=== PATIENT | male | born 1955 | race Caucasian/White ===

== ENCOUNTER 2016-07-14 16:33 | Observation (INO) | payer OTHER ==
[2016-07-14 17:18] VITALS: BMI 23.5
[2016-07-14] MEDS ORDERED: ASPIRIN 81 MG CHEWABLE TABLETS PO ONE (20:25)
--- NOTE | 2016-07-14 20:26 | PDOC ---
History of Present Illness - General Chief Complaint: Chest Pain Stated Complaint: DIZZINESS Time Seen by Provider: 07/14/16 19:41 History Source: Patient Exam Limitations: No Limitations - History of Present Illness Initial Comments: 07/14/16 20:21 61yo Male patient presents to ED c/o CP that began at 3pm today with right arm pain and dry mouth. Patient reports he was recently admitted for difficulty breathing but signed himself out 07/03 because he wanted to spend the holidays with family. Patient reports hx: COPD, Asthma, HTN, Open Heart Surgery. He denies n/v/d, fever, back pain, diff breathing, confusion, dizziness, sweating, hematuria, dysuria, or any other complaints at this time. Dr. Kaye- Cardiology Timing/Duration: reports: constant, changing over time Severity/Quality: reports: moderate, pressure Location: reports: substernal Chest Pain Radiation: reports: arms (Right Arm) Activities at Onset: reports: no specific activity Prior Chest Pain/Cardiac Workup: reports: Other (Bypass surgery 1 year ago.) Modifying Factors: worse with: antacids, breathing, coughing, defecating, eating , exercise, lying down, morphine, movement, nitroglycerin, oxygen, palpation, rest, other Nitro Today/Relief: No: no nitro taken today, 0.4 mg x 1, 0.4 mg x 2, 0.4 mg x 3 , 0.4 mg x 4, provided by EMS, provided by ED, provided at home, no relief, mild relief, complete relief Aspirin Received prior to arrival (Core Measure): Yes: provided by ED Associated Symptoms: Yes: Chest Pain/pressure Past History - Travel Traveled outside of the country in the last 30 days: No Close contact w/someone who was outside of country & ill: No - Past Medical History Allergies/Adverse Reactions: Allergies Allergy/AdvReac Type Severity Reaction Status Date / Time shrimp Allergy Vomiting Verified 07/14/16 17:18 Home Medications: Ambulatory Orders Ascorbic Acid [Vitamin C] 500 mg PO DAILY 02/20/15 Aspirin [Cipriano Chewable Aspirin] 81 mg PO DAILY 02/20/15 Carvedilol [Coreg] 25 mg PO BID 02/20/15 Famotidine [Pepcid -] 20 mg PO DAILY #7 tablet 02/20/15 Gabapentin 300 mg PO TID 02/20/15 Isosorbide Mononitrate 60 mg PO DAILY 02/20/15 Multivitamin [Poly-Vitamin] 1 each PO DAILY 02/20/15 Rosuvastatin Calcium [Crestor] 20 mg PO BID 02/20/15 Budesonide/Formeterol Fumarate [SYMBICORT 80/4.5mcg -] 1 inh PO BID 07/01/16 Albuterol 0.083% Nebulizer Letty [Ventolin 0.083% Nebulizer Soln -] 1 amp NEB ONCE PRN #0 amp 07/03/16 Amlodipine Besylate [Norvasc -] 5 mg PO DAILY #30 tablet 07/03/16 Budesonide/Formeterol Fumarate [SYMBICORT 160/4.5mcg -] 1 inh PO BID #1 cannister 07/03/16 Furosemide [Lasix -] 40 mg PO BID #60 tablet 07/03/16 Hydralazine HCl [Apresoline -] 50 mg PO TID #90 tablet 07/03/16 Ipratropium/Albuterol Sulfate [Combivent Respimat Inhal [place]] 4 gm IH DAILY #1 aer.w.adap 07/03/16 Isosorbide Mononitrate [Imdur -] 60 mg PO DAILY tab.sr.24h 07/03/16 Prednisone 10 mg PO DAILY #10 tablet 07/03/16 Tamsulosin HCl [Flomax -] 0.8 mg PO DAILY@0830 #30 cap.er.24h 07/03/16 Asthma: Yes Cardiac Disorders: Yes (CABG) CVA: Yes (08/2014) COPD: Yes CHF: Yes Diabetes: No HTN: Yes Hypercholesterolemia: No Suicide Attempt (Hx): No - Surgical History Cardiac Surgery: Yes Orthopedic Surgery: Yes (lt above knee amputation) - Immunization History Immunization Up to Date: No - Psycho/Social/Smoking Cessation Hx Anxiety: No Suicidal Ideation: No Smoking History: Former smoker Have you smoked in the past 12 months: No Number of Cigarettes Smoked Daily: 2 If you are a former smoker, when did you quit?: 4 YRS AGO Cigars Per Day: 1 Information on smoking cessation initiated: No 'Breaking Loose' booklet given: 09/08/14 Hx Alcohol Use: No Drug/Substance Use Hx: No Substance Use Type: None Hx Substance Use Treatment: No Cardiac Specific PMH - Complaint Specific PMHX Myocardial Infarction: Yes Pacemaker: No (was to get in Aug, but refused) Review of Systems - Review of Systems Respiratory: No: Orthopnea, Shortness of Breath Cardiac (ROS): Yes: Chest Pain, Other (Bypass surgery) All Other Systems: Reviewed and Negative *Physical Exam - Vital Signs Last Vital Signs Temp Pulse Resp BP Pulse Ox 98.4 F 74 16 126/65 96 07/14/16 17:15 07/14/16 17:15 07/14/16 17:15 07/14/16 17:15 07/14/16 17:15 - Physical Exam General Appearance: Yes: Nourished, Appropriately Dressed Neck: positive: Trachea midline, Supple Respiratory/Chest: positive: Lungs Clear, Normal Breath Sounds Cardiovascular: positive: Regular Rhythm, Regular Rate Gastrointestinal/Abdominal: positive: Normal Bowel Sounds, Soft Lymphatic: negative: Adenopathy Musculoskeletal: positive: Normal Inspection Extremity: positive: Normal Capillary Refill, Normal Inspection, Normal Range of Motion Integumentary: positive: Normal Color, Dry, Warm Neurologic: positive: superintendent marine II-XII NML intact ED Treatment Course - LABORATORY CBC & Chemistry Diagram: 07/14/16 22:46 - ADDITIONAL ORDERS Additional order review: Laboratory Results 07/14/16 07/14/16 23:00 22:46 Creatine Kinase 85 Troponin I 0.04 D Urine Color Ltyellow Urine Appearance Clear Urine pH 6.0 Ur Specific [place] 1.014 Urine Protein 1+ H Urine Glucose (UA) Negative Urine Ketones Negative Urine Blood Negative Urine Nitrite Negative Urine Bilirubin Negative Urine Urobilinogen Negative Ur Leukocyte Esterase Negative 07/14/16 22:46 RBC 4.84 MCV 91.8 MCHC 32.1 RDW 14.3 MPV 9.4 Neutrophils % 63.0 Lymphocytes % 16.1 D Monocytes % 17.8 H Eosinophils % 2.4 D Basophils % 0.7 D - RADIOLOGY Radiology Studies Ordered: Category Date Time Status CHEST X-RAY PORTABLE* [RAD] Stat Radiology 07/14/16 19:50 Completed - Medications Given in the ED: ED Medications Discontinued Medications Generic Name Dose Route Start Last Admin Trade Name Freq PRN Reason Stop Dose Admin Aspirin 324 mg 07/14/16 20:25 07/14/16 22:48 Asa - PO 07/14/16 20:26 324 mg ONCE ONE Administration *DC/Admit/Observation/Transfer Diagnosis at time of Disposition: Chest pain in adult COPD (chronic obstructive pulmonary disease) Qualifiers: COPD type: COPD with acute exacerbation Qualified Code(s): J44.1 - Chronic obstructive pulmonary disease with (acute) exacerbation - Discharge Dispostion Condition at time of disposition: Stable Admit: Yes Decision to Admit order Date/Time: 07/15/16 00:[address] Velasco
--- NOTE | 2016-07-14 20:36 | PDOC ---
*Physical Exam - Vital Signs Last Vital Signs Temp Pulse Resp BP Pulse Ox 98.4 F 74 16 126/65 96 07/14/16 17:15 07/14/16 17:15 07/14/16 17:15 07/14/16 17:15 07/14/16 17:15 ED Treatment Course - LABORATORY CBC & Chemistry Diagram: 07/15/16 05:51 07/15/16 05:51 Medical Decision Making - Medical Decision Making 07/14/16 20:36 agree with care from LUBNA Delgado *DC/Admit/Observation/Transfer Diagnosis at time of Disposition: COPD (chronic obstructive pulmonary disease), Chest pain in adult - Discharge Dispostion Condition at time of disposition: Stable
[2016-07-14] MEDS ORDERED: ASPIRIN 325 MG TABLET ONE (22:51)
[2016-07-14 23:22] LABS: BASOPHIL 0.7 % (0-2.0); EOSINOPHIL 2.4 % (0-4.5); MCH 29.5 pg (25.7-33.7); MCHC 32.1 g/dl (32.0-35.9); MEAN CELL VOLUME 91.8 fl (80-96); MEAN PLT VOLUME 9.4 fl (7.5-11.1); PLATELET COUNT 162 K/MM3 (134-434); RDW 14.3 % (11.9-15.9); WHITE BLOOD COUNT 6.5 K/mm3 (4.0-10.0)
[2016-07-14 23:56] LABS: TROPONIN I 0.04 ng/ml (0.00-0.05)
[2016-07-15 00:17] LABS: URINE APPEARANCE CLEAR; URINE BILIRUBIN NEGATIVE (NEGATIVE); URINE BLOOD NEGATIVE (NEGATIVE); URINE COLOR LTYELLOW; URINE GLUCOSE (UA) NEGATIVE (NEGATIVE); URINE KETONE NEGATIVE (NEGATIVE); URINE LEUK ESTERASE NEGATIVE (NEGATIVE); URINE NITRITE NEGATIVE (NEGATIVE); URINE UROBILINOGEN NEGATIVE E.U./dl (0.2-1.0)
[2016-07-15 00:21] LABS: URINE PROTEIN 1+ (NEGATIVE)
[2016-07-15 00:36] LABS: URINE RBC 1 /hpf (0-3); URINE WBC 1 /hpf (3-5)
--- NOTE | 2016-07-15 00:51 | HP ---
[id number] HISTORY OF PRESENT ILLNESS: 61 year old male, past medical history of COPD, CHF, asthma,, ischemic cardiomyopathy, CAD s/p CABG, CVA, CKD, HTN, who presents with substernal chest pain radiating down his right arm, 8 hours in duration. ER course was notable for: (1) Chest pain (2) Right arm numbness Recent Travel: None reported PAST MEDICAL HISTORY: COPD, CHF, asthma, ischemic cardiomyopathy, CAD s/p CABG, CVA, CKD, HTN, PAST SURGICAL HISTORY: Left above knee amputation Social History: Smoking: None reported Alcohol: None reported Drugs: None reported Family History: Allergies shrimp Allergy (Verified 07/14/16 17:18) Vomiting HOME MEDICATIONS: Medication Instructions Recorded Ascorbic Acid [Vitamin C] 500 mg PO DAILY 02/20/15 Aspirin [Cipriano Chewable Aspirin] 81 mg PO DAILY 02/20/15 Carvedilol [Coreg] 25 mg PO BID 02/20/15 Famotidine [Pepcid -] 20 mg PO DAILY #7 tablet 02/20/15 Gabapentin 300 mg PO TID 02/20/15 Isosorbide Mononitrate 60 mg PO DAILY 02/20/15 Multivitamin [Poly-Vitamin] 1 each PO DAILY 02/20/15 Rosuvastatin Calcium [Crestor] 20 mg PO BID 02/20/15 Budesonide/Formeterol Fumarate 1 inh PO BID 07/01/16 [SYMBICORT 80/4.5mcg -] Albuterol 0.083% Nebulizer Letty 1 amp NEB ONCE PRN #0 amp 07/03/16 [Ventolin 0.083% Nebulizer Soln -] Amlodipine Besylate [Norvasc -] 5 mg PO DAILY #30 tablet 07/03/16 Budesonide/Formeterol Fumarate 1 inh PO BID #1 cannister 07/03/16 [SYMBICORT 160/4.5mcg -] Furosemide [Lasix -] 40 mg PO BID #60 tablet 07/03/16 Hydralazine HCl [Apresoline -] 50 mg PO TID #90 tablet 07/03/16 Ipratropium/Albuterol Sulfate 4 gm IH DAILY #1 aer.w.adap 07/03/16 [Combivent Respimat Inhal [place]] Isosorbide Mononitrate [Imdur -] 60 mg PO DAILY tab.sr.24h 07/03/16 Prednisone 10 mg PO DAILY #10 tablet 07/03/16 Tamsulosin HCl [Flomax -] 0.8 mg PO DAILY@0830 #30 cap.er.24h 07/03/16 REVIEW OF SYSTEMS CONSTITUTIONAL: Absent: fever, chills, diaphoresis, generalized weakness, malaise, loss of appetite, weight change HEENT: Absent: rhinorrhea, nasal congestion, throat pain, throat swelling, difficulty swallowing, mouth swelling, ear pain, eye pain, visual changes CARDIOVASCULAR: Present: chest pain Absent: syncope, palpitations, irregular heart rate, lightheadedness, peripheral edema RESPIRATORY: Absent: cough, shortness of breath, dyspnea with exertion, orthopnea, wheezing, stridor, hemoptysis GASTROINTESTINAL: Absent: abdominal pain, abdominal distension, nausea, vomiting, diarrhea, constipation, melena, hematochezia GENITOURINARY: Absent: dysuria, frequency, urgency, hesitancy, hematuria, flank pain, genital pain MUSCULOSKELETAL: Absent: myalgia, arthralgia, joint swelling, back pain, neck pain SKIN: Absent: rash, itching, pallor HEMATOLOGIC/IMMUNOLOGIC: Absent: easy bleeding, easy bruising, lymphadenopathy, frequent infections ENDOCRINE: Absent: unexplained weight gain, unexplained weight loss, heat intolerance, cold intolerance NEUROLOGIC: Absent: headache, focal weakness or paresthesias, dizziness, unsteady gait, seizure, mental status changes, bladder or bowel incontinence PSYCHIATRIC: Absent: anxiety, depression, suicidal or homicidal ideation, hallucinations. PHYSICAL EXAMINATION Vital Signs - 24 hr 07/14/16 17:15 Temperature 98.4 F Pulse Rate 74 Respiratory 16 Rate Blood Pressure 126/65 O2 Sat by Pulse 96 Oximetry (%) GENERAL: Awake, alert, and fully oriented, in no acute distress. HEAD: Normal with no signs of trauma. EYES: Pupils equal, round and reactive to light, extraocular movements intact, sclera anicteric, conjunctiva clear. No lid lag. EARS, NOSE, THROAT: Ears normal, nares patent, oropharynx clear without exudates. Moist mucous membranes. NECK: Normal range of motion, supple without lymphadenopathy, JVD, or masses. LUNGS: +Bilateral expiratory wheezing. No crackles. No accessory muscle use. HEART: Regular rate and rhythm, normal S1 and S2 without murmur, rub or gallop. ABDOMEN: Soft, nontender, not distended, normoactive bowel sounds, no guarding, no rebound, no masses. No hepatomegaly or splenomegaly. MUSCULOSKELETAL: Normal range of motion at all joints. No bony deformities or tenderness. No CVA tenderness. UPPER EXTREMITIES: 2+ pulses, warm, well-perfused. No cyanosis. No clubbing. Cap refill <2 seconds. No peripheral edema. LOWER EXTREMITIES: 2+ pulses, warm, well-perfused. No calf tenderness. No peripheral edema. Amputated above the knee left lower extremity. NEUROLOGICAL: Cranial nerves II-XII intact. Normal speech. Normal gait. PSYCHIATRIC: Cooperative. Good eye contact. Appropriate mood and affect. SKIN: Warm, dry, normal turgor, no rashes or lesions noted. Laboratory Results - last 24 hr 07/14/16 07/14/16 07/14/16 22:46 22:46 23:00 WBC 6.5 D RBC 4.84 Hgb 14.3 Hct 44.4 MCV 91.8 MCHC 32.1 RDW 14.3 Plt Count 162 D MPV 9.4 Neutrophils % 63.0 Lymphocytes % 16.1 D Monocytes % 17.8 H Eosinophils % 2.4 D Basophils % 0.7 D Creatine Kinase 85 Troponin I 0.04 D Urine Color Ltyellow Urine Appearance Clear Urine pH 6.0 Ur Specific [place] 1.014 Urine Protein 1+ H Urine Glucose (UA) Negative Urine Ketones Negative Urine Blood Negative Urine Nitrite Negative Urine Bilirubin Negative Urine Urobilinogen Negative Ur Leukocyte Esterase Negative Urine RBC 1 Urine WBC 1 Ur Epithelial Cells Rare Chest X-Ray Impression: Mild cardiomegaly and bilateral increased interstitial markings again seen without evidence of focal infiltrates. ASSESSMENT/PLAN: 61 year old male, past medical history of ischemic cardiomyopathy, chronic systolic and diastolic heart failure, CKD, COPD, CAD, HTN, HLD, who presents with chest pain 1. Chest pain -Rule out ACS -Trend troponins -EKG -Continue with aspirin -morphine/nitro PRN pain -Heart Score: 4 2. Diastolic and systolic heart failure -Recent echo with EF of 20% -Patient refused ICD on last admission -Continue with coreg, hydralazine 3. COPD -Continue home meds -Continue nebulizer PRN -Slow dose prednisone 10mg daily -No in acute exacerbation 4. CAD -Continue home meds 5. HLD -Continue home meds 6. Renal Failure Documentation prepared by Devin Olmstead, acting as medical associate for Chasidy Velasco D.O. <Chasidy Velasco - Last Filed: 07/19/16 19:03> Visit type - Emergency Visit Emergency Visit: Yes ED Registration Date: 07/15/16 Care time: The patient presented to the Emergency Department on the above date and was hospitalized for further evaluation of their emergent condition. - New Patient This patient is new to me today: Yes Date on this admission: 07/19/16 - Critical Care Critical Care patient: No
[2016-07-15] MEDS ORDERED: ALBUTEROL SO4 0.083% IH SOL 2.5 MG/3 ML VIAL.NEB. NEB ONE (01:47)
[2016-07-15] MEDS ORDERED: ALBUTEROL SO4 2.5/IPRATROPIUM 0.5 INH SOL 3 ML VIAL.NEB. NEB ONE (02:25)
[2016-07-15 02:27] LABS: ALBUMIN 2.1 g/dl (3.4-5.0); BILIRUBIN,TOTAL 0.5 mg/dL (0.2-1.0); MAGNESIUM 1.8 mg/dL (1.8-2.4); TOT PROT 4.8 g/dl (6.4-8.2)
[2016-07-15 02:35] LABS: CALCIUM 6.4 mg/dL (8.5-10.1)
[2016-07-15 06:16] LABS: MCH 29.3 pg (25.7-33.7); MCHC 32.1 g/dl (32.0-35.9); MEAN CELL VOLUME 91.3 fl (80-96); MEAN PLT VOLUME 9.6 fl (7.5-11.1); PLATELET COUNT 179 K/MM3 (134-434); RDW 14.6 % (11.9-15.9); WHITE BLOOD COUNT 5.2 K/mm3 (4.0-10.0)
[2016-07-15 07:09] LABS: CALCIUM 8.1 mg/dL (8.5-10.1); CREATININE 2.7 mg/dL (0.7-1.3); MAGNESIUM 2.6 mg/dL (1.8-2.4)
[2016-07-15] MEDS ORDERED: PATIENT'S OWN MEDICATION (NON-FORMULARY) (Ipratropium/Albuterol Sulfate [Combivent Respima IH SCH (10:00)
[2016-07-15] MEDS: TAMSULOSIN HCL 0.4 MG CAP.ER.24H (FP) PO SCH (10:15)
[2016-07-15] MEDS: ISOSORBIDE MONONITRATE 60 MG TAB.SR.24H (FP) PO SCH (10:15)
[2016-07-15] MEDS: ASPIRIN 81 MG CHEWABLE TABLETS PO SCH (10:15)
[2016-07-15] MEDS: CARVEDILOL 25 MG TABLET (FP) PO SCH ×2 (10:15→22:10)
[2016-07-15] MEDS: hydrALAZINE HCL 50 MG TABLET (FP) PO SCH ×3 (10:15→22:10)
[2016-07-15] MEDS: predniSONE 10 MG TABLET (UD) PO SCH (10:15)
[2016-07-15] MEDS: amLODIPine BESYLATE 5 MG TABLET (FP) PO SCH (10:15)
[2016-07-15] MEDS: FUROSEMIDE 40 MG TABLET (FP) PO SCH ×2 (10:15→16:30)
[2016-07-15] MEDS: ASCORBIC ACID 500 MG TABLET (FP) PO SCH (10:15)
[2016-07-15] MEDS: GABAPENTIN 300 MG CAPSULE (FP) PO SCH ×3 (10:15→22:10)
[2016-07-15] MEDS: RANITIDINE HCL 150 MG TABLET (FP) PO SCH (10:15)
[2016-07-15] MEDS: MULTIVITAMINS (DAILY MVI) TABLET (FP) PO SCH (10:15)
--- NOTE | 2016-07-15 13:00 | CONSULT ---
Consult Consult Specialty:: cardiology - History of Present Illness History of Present Illness: 61yo Male patient presents to ED c/o CP that began at 3pm today with right arm pain and dry mouth. Patient reports he was recently admitted for difficulty breathing but signed himself out 07/03 because he wanted to spend the holidays with family. Patient reports hx: COPD, Asthma, HTN, Open Heart Surgery. He denies n/v/d, fever, back pain, diff breathing, confusion, dizziness, sweating, hematuria, dysuria, or any other complaints at this time. 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 LE Former heavy cigarette smoker; quit in 2010 Quit alcohol years ago; never a heavy drinker - History Source History Provided By: Patient, Medical Record - Past Medical History [employer]: Yes: CVA Cardio/Vascular: Yes: CAD, CHF, HTN, Hyperlipdemia Pulmonary: Yes: Asthma, COPD Renal/: Yes: Renal Inusuff Endocrine: Yes: Diabetes Mellitus - Past Surgical History Past Surgical History: Yes: Amputation, CABG - Alcohol/Substance Use Hx Alcohol Use: No History of Substance Use: reports: None - Smoking History Smoking history: Former smoker Have you smoked in the past 12 months: No Aproximately how many cigarettes per day: 2 If you are a former smoker, when did you quit?: 4 YRS AGO - Social History ADL: Independent 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 History of Recent Travel: No Home Medications - Allergies Allergies/Adverse Reactions: Allergies Allergy/AdvReac Type Severity Reaction Status Date / Time shrimp Allergy Vomiting Verified 07/14/16 17:18 - Home Medications Home Medications: Ambulatory Orders Ascorbic Acid [Vitamin C] 500 mg PO DAILY 02/20/15 Aspirin [Cipriano Chewable Aspirin] 81 mg PO DAILY 02/20/15 Carvedilol [Coreg] 25 mg PO BID 02/20/15 Famotidine [Pepcid -] 20 mg PO DAILY #7 tablet 02/20/15 Gabapentin 300 mg PO TID 02/20/15 Multivitamin [Poly-Vitamin] 1 each PO DAILY 02/20/15 Rosuvastatin Calcium [Crestor] 20 mg PO BID 02/20/15 Budesonide/Formeterol Fumarate [SYMBICORT 80/4.5mcg -] 1 inh PO BID 07/01/16 Albuterol 0.083% Nebulizer Letty [Ventolin 0.083% Nebulizer Soln -] 1 amp NEB ONCE PRN #0 amp 07/03/16 Amlodipine Besylate [Norvasc -] 5 mg PO DAILY #30 tablet 07/03/16 Budesonide/Formeterol Fumarate [SYMBICORT 160/4.5mcg -] 1 inh PO BID #1 cannister 07/03/16 Furosemide [Lasix -] 40 mg PO BID #60 tablet 07/03/16 Hydralazine HCl [Apresoline -] 50 mg PO TID #90 tablet 07/03/16 Ipratropium/Albuterol Sulfate [Combivent Respimat Inhal [place]] 4 gm IH DAILY #1 aer.w.adap 07/03/16 Isosorbide Mononitrate [Imdur -] 60 mg PO DAILY tab.sr.24h 07/03/16 Prednisone 10 mg PO DAILY #10 tablet 07/03/16 Tamsulosin HCl [Flomax -] 0.8 mg PO DAILY@0830 #30 cap.er.24h 07/03/16 Family Disease History - Family Disease History Family Disease History: Diabetes: Mother (HTN), Heart Disease: Father, Other: Brother (healthy and living), Sister (healthy and living) Review of Systems - Review of Systems Constitutional: reports: No Symptoms Eyes: reports: No Symptoms HENT: reports: No Symptoms Neck: reports: No Symptoms Cardiovascular: reports: No Symptoms Respiratory: reports: SOB Gastrointestinal: reports: No Symptoms Genitourinary: reports: No Symptoms Breasts: reports: No Symptoms Reported Musculoskeletal: reports: No Symptoms Integumentary: reports: No Symptoms Neurological: reports: No Symptoms Endocrine: reports: No Symptoms Hematology/Lymphatic: reports: No Symptoms Psychiatric: reports: No Symptoms Vital Signs: Vital Signs Temperature 97 F L 07/15/16 02:51 Pulse Rate 79 07/15/16 11:48 Respiratory Rate 18 07/15/16 11:48 Blood Pressure 124/70 07/15/16 11:48 O2 Sat by Pulse Oximetry (%) 94 L 07/15/16 11:48 Constitutional: Yes: Well Nourished, No Distress, Calm Eyes: Yes: WNL, Conjunctiva Clear, EOM Intact HENT: Yes: WNL, Atraumatic, Normocephalic Neck: Yes: WNL, Supple, Trachea Midline Respiratory: Yes: WNL, Regular, CTA Bilaterally Gastrointestinal: Yes: WNL, Normal Bowel Sounds Renal/: Yes: WNL Cardiovascular: Yes: WNL, Regular Rate and Rhythm Musculoskeletal: Yes: WNL Extremities: Yes: WNL Integumentary: Yes: WNL Neurological: Yes: WNL, Alert, Oriented ...Motor Strength: WNL Psychiatric: Yes: WNL, Alert, Oriented - Other Data Labs, Other Data: CBC, BMP 07/15/16 05:51 07/15/16 05:51 Troponin, BNP 07/15/16 07/15/16 05:51 09:53 Troponin I 0.05 0.05 Troponin, BNP 07/15/16 07/15/16 05:51 09:53 Troponin I 0.05 0.05 Laboratory Tests 07/14/16 07/14/16 07/14/16 22:46 22:46 23:00 WBC 6.5 D RBC 4.84 Hgb 14.3 Hct 44.4 MCV 91.8 MCHC 32.1 RDW 14.3 Plt Count 162 D MPV 9.4 Neutrophils % 63.0 Lymphocytes % 16.1 D Monocytes % 17.8 H Eosinophils % 2.4 D Basophils % 0.7 D Sodium Potassium Chloride Carbon Dioxide Anion Gap BUN Creatinine Creat Clearance w eGFR Random Glucose Calcium Magnesium Total Bilirubin AST ALT Alkaline Phosphatase Creatine Kinase 85 Troponin I 0.04 D Total Protein Albumin Urine Color Ltyellow Urine Appearance Clear Urine pH 6.0 Ur Specific [place] 1.014 Urine Protein 1+ H Urine Glucose (UA) Negative Urine Ketones Negative Urine Blood Negative Urine Nitrite Negative Urine Bilirubin Negative Urine Urobilinogen Negative Ur Leukocyte Esterase Negative Urine RBC 1 Urine WBC 1 Ur Epithelial Cells Rare 07/15/16 07/15/16 07/15/16 01:36 05:51 05:51 WBC 5.2 RBC 4.69 Hgb 13.7 Hct 42.8 MCV 91.3 MCHC 32.1 RDW 14.6 Plt Count 179 MPV 9.6 Neutrophils % Lymphocytes % Monocytes % Eosinophils % Basophils % Sodium 148 H Potassium 3.3 L Chloride 116 H D Carbon Dioxide 20 L D Anion Gap 12 BUN 40 H Creatinine 2.0 H D Creat Clearance w eGFR 34.25 Random Glucose 77 D Calcium 6.4 L* D Magnesium 1.8 Total Bilirubin 0.5 D AST 30 ALT 33 Alkaline Phosphatase 53 D Creatine Kinase Troponin I 0.05 Total Protein 4.8 L D Albumin 2.1 L D Urine Color Urine Appearance Urine pH Ur Specific [place] Urine Protein Urine Glucose (UA) Urine Ketones Urine Blood Urine Nitrite Urine Bilirubin Urine Urobilinogen Ur Leukocyte Esterase Urine RBC Urine WBC Ur Epithelial Cells 07/15/16 07/15/16 05:51 09:53 WBC RBC Hgb Hct MCV MCHC RDW Plt Count MPV Neutrophils % Lymphocytes % Monocytes % Eosinophils % Basophils % Sodium 139 Potassium 3.9 Chloride 108 H Carbon Dioxide 27 D Anion Gap 4 L BUN 49 H D Creatinine 2.7 H D Creat Clearance w eGFR Random Glucose 128 H D Calcium 8.1 L D Magnesium 2.6 H D Total Bilirubin AST ALT Alkaline Phosphatase Creatine Kinase Troponin I 0.05 Total Protein Albumin Urine Color Urine Appearance Urine pH Ur Specific [place] Urine Protein Urine Glucose (UA) Urine Ketones Urine Blood Urine Nitrite Urine Bilirubin Urine Urobilinogen Ur Leukocyte Esterase Urine RBC Urine WBC Ur Epithelial Cells Imaging - Results Chest X-ray: Image Reviewed (no i/e) EKG: Pending Assessment/Plan ECHO 01/2015: moderate-severely reduced LVEF; mildly reduced RVEF; moderate- severe MR; mild-moderate TR; trace AR; moderate WI; RVSP 50-60 mmHg. Rest MUGA 01/21/2015: mild-moderately dilated LV; moderately reduced LVEF (45%) ; severe inferior and inferoapical hypokinesis. EKG 02/23: NSR; RAD; inferior infarct; lateral T wave abnormalities. Carotid artery US 09/23: moderate intimal thickening CCA, bifurcation, and proximal ICA bilaterally (suggestion of soft tissue plaques); moderate narrowing of proximal ICA bilaterally (50%) with significant stenoses bilaterally; correlation need with CTA or contrast-enhanced MRA. MRA 09/23: for evaluation of TIA, right LE weakness:small acute nonhemorrhagic infarct in left posterior fronatl centrum semiovale; small linear chronic infarct right cerebellar hemisphere; moderate ischemic gliosis (periventricular and subcortical microvascular); no large vessel occlusion or stenosis; prominent atherosclerotic mural irregularity along the cavernous carotid arteries bilaterally. Obtain complete medication record. It is important that pt be on, unless contraindications exist, a beta holly, ACEI or ARB, and spironolactone; he is presently at least on hydralazine + Imdur. F/u BUN/Cr, electrolytes. After optimization of these medications, ICD needs to be considered if LVEF is < 35%. He says he was offered an ICD when LVEF was first noted to be reduced, but refused a Life vest and the ICD, and says he has talked with his that, if LVEF remains low, he will refuse it again. Still refusing ICD understands risks of .
--- NOTE | 2016-07-15 14:31 | EKG ---
Test Reason : Blood Pressure : / mmHG Vent. Rate : 079 BPM Atrial Rate : 079 BPM P-R Int : 164 ms QRS Dur : 098 ms QT Int : 392 ms P-R-T Axes : 066 178 106 degrees QTc Int : 449 ms SINUS RHYTHM WITH FREQUENT PREMATURE VENTRICULAR COMPLEXES LEFT POSTERIOR FASCICULAR BLOCK INFERIOR INFARCT (CITED ON OR BEFORE 16-MAY-2014) ABNORMAL ECG WHEN COMPARED WITH ECG OF 02-JUL-2016 10:23, PREMATURE VENTRICULAR COMPLEXES ARE NOW PRESENT QUESTIONABLE CHANGE IN QRS AXIS T WAVE INVERSION LESS EVIDENT IN LATERAL LEADS Confirmed by ULISES YARBROUGH MD ([id number]) on 07/15/2016 2:31:16 PM Referred By: Confirmed By:ULISES YARBROUGH MD
[2016-07-15] MEDS ORDERED: FUROSEMIDE 40 MG TABLET (FP) ONE (16:17)
--- NOTE | 2016-07-15 16:53 | PN ---
Teaching Attending Note Name of Resident: John Tripp ATTENDING PHYSICIAN STATEMENT I saw and evaluated the patient. I reviewed the resident's note and discussed the case with the resident. I agree with the resident's findings and plan as documented. SUBJECTIVE: seen and evaluated at the bedside OBJECTIVE: resting comfortably in bed ASSESSMENT AND PLAN: 61 year old male, past medical history of COPD, CHF, asthma,, ischemic cardiomyopathy, CAD s/p CABG, CVA, CKD, HTN, who presents with substernal chest pain -Chest pain now resolved -trops negative -no ischemic changes on EKG -pt has known CAD and states that his last stress test was over a year ago -was seen by cardiology attending today; will follow up for specific plan
--- NOTE | 2016-07-15 19:22 | PN ---
Physical Exam: SUBJECTIVE: Patient seen and examined at bedside. Patient stated that chest pain has resolved but he wants to be admitted to have the necessary tests done. No additional complaints. Denies fever, chills, sob, abd pain, n/v, bowel or urinary sx. OBJECTIVE: Vital Signs Period Temp Pulse Resp BP Sys/Mccabe Pulse Ox Last 24 Hr 97 F-98.0 F 68-79 16-19 114-143/60-76 94-99 GENERAL: The patient is awake, alert, and fully oriented, in no acute distress. LUNGS: slight wheezing b/l HEART: Regular rate and rhythm, S1, S2 without murmur, rub or gallop. ABDOMEN: Soft, nontender, nondistended, normoactive bowel sounds, no guarding, no rebound, no hepatosplenomegaly, no masses. EXTREMITIES: b/l prosthetic legs Laboratory Results - last 24 hr 07/15/16 07/15/16 07/15/16 01:36 05:51 05:51 WBC 5.2 RBC 4.69 Hgb 13.7 Hct 42.8 MCV 91.3 MCHC 32.1 RDW 14.6 Plt Count 179 MPV 9.6 Sodium 148 H Potassium 3.3 L Chloride 116 H D Carbon Dioxide 20 L D Anion Gap 12 BUN 40 H Creatinine 2.0 H D Creat Clearance w eGFR 34.25 Random Glucose 77 D Calcium 6.4 L* D Magnesium 1.8 Total Bilirubin 0.5 D AST 30 ALT 33 Alkaline Phosphatase 53 D Troponin I 0.05 Total Protein 4.8 L D Albumin 2.1 L D 07/15/16 07/15/16 05:51 09:53 WBC RBC Hgb Hct MCV MCHC RDW Plt Count MPV Sodium 139 Potassium 3.9 Chloride 108 H Carbon Dioxide 27 D Anion Gap 4 L BUN 49 H D Creatinine 2.7 H D Creat Clearance w eGFR Random Glucose 128 H D Calcium 8.1 L D Magnesium 2.6 H D Total Bilirubin AST ALT Alkaline Phosphatase Troponin I 0.05 Total Protein Albumin Active Medications Generic Name Dose Route Start Last Admin Trade Name Freq PRN Reason Stop Dose Admin Amlodipine Besylate 5 mg 07/15/16 10:00 07/15/16 10:15 Norvasc - PO 5 mg DAILY MAURICIO Administration Ascorbic Acid 500 mg 07/15/16 10:00 07/15/16 10:15 Vitamin C - PO 500 mg DAILY MAURICIO Administration Aspirin 81 mg 07/15/16 10:00 07/15/16 10:15 Asa - PO 81 mg DAILY MAURICIO Administration Budesonide/Formoterol Fumarate 1 puff 07/15/16 10:00 Symbicort 160/4.5mcg - IH BID MAURICIO Carvedilol 25 mg 07/15/16 10:00 07/15/16 10:15 Coreg - PO 25 mg BID MAURICIO Administration Furosemide 40 mg 07/15/16 06:00 07/15/16 16:30 Lasix - PO 40 mg BIDLASIX MAURICIO Administration Gabapentin 300 mg 07/15/16 06:00 07/15/16 16:30 Neurontin - PO 300 mg TID MAURICIO Administration Hydralazine HCl 50 mg 07/15/16 06:00 07/15/16 16:30 Apresoline - PO 50 mg TID MAURICIO Administration Isosorbide Mononitrate 60 mg 07/15/16 10:00 07/15/16 10:15 Imdur - PO 60 mg DAILY MAURICIO Administration Multivitamins/Minerals/Vitamin C 1 tab 07/15/16 10:00 07/15/16 10:15 Tab-A-Vit - PO 1 tab DAILY MAURICIO Administration Prednisone 10 mg 07/15/16 10:00 07/15/16 10:15 Deltasone - PO 10 mg DAILY MAURICIO Administration Ranitidine HCl 150 mg 07/15/16 10:00 07/15/16 10:15 Zantac - PO 150 mg DAILY MAURICIO Administration Rosuvastatin Calcium 10 mg 07/15/16 22:00 Crestor - PO HS [facility] Tamsulosin HCl 0.8 mg 07/15/16 08:30 07/15/16 10:15 Flomax - PO 0.8 mg DAILY@0830 MAURICIO Administration ASSESSMENT/PLAN: 61 yo M w/ h/o COPD, CHF, asthma,, ischemic cardiomyopathy, CAD s/p CABG, CVA, CKD, HTN, who presents with substernal chest pain. He's admitted to telemetry observation unit for further evaluation. Chest pain - resolved - troponins negative x 3 - negative EKG - pt requested to be seen by Dr. Lemon to discuss retirement management Visit type - Emergency Visit Emergency Visit: Yes ED Registration Date: 07/15/16 Care time: The patient presented to the Emergency Department on the above date and was hospitalized for further evaluation of their emergent condition. - New Patient This patient is new to me today: Yes Date on this admission: 07/15/16 - Critical Care Critical Care patient: No - Discharge Referral Referred to [facility] Med P.C.: No
[2016-07-15] MEDS ORDERED: hydrALAZINE HCL 25 MG TABLET (FP) ONE (20:28)
[2016-07-15] MEDS ORDERED: CARVEDILOL 12.5 MG TABLET (FP) ONE (20:28)
[2016-07-15] MEDS ORDERED: GABAPENTIN 100 MG CAPSULE (FP) ONE (20:28)
[2016-07-15] MEDS ORDERED: ROSUVASTATIN CA 10 MG TABLET (FP) PO SCH (22:00)
[2016-07-15] MEDS: BUDESONIDE/FORMETEROL FUMARATE 160/4.5 mcg INHALER IH SCH (22:58)
--- NOTE | 2016-07-15 23:16 | HOSP ---
<Renate Meneses - Last Filed: 07/15/16 23:16> Physical Examination Vital Signs: Labs: CBC, BMP 07/15/16 05:51 07/15/16 05:51 <Shirley Rod - Last Filed: 07/16/16 02:38> Subjective - Review of Symptoms Subjective: Patient 61 yr old male presenting to the ED with substernal chest pain squeezing and intermittent radiating to right arm. He states that he had dizziness and SOB with chest pain. He denies symptoms now. History significant for COPD, CHF EF less than 30 %, asthma, CAD s/p GABG, CVA, CKD and HTN. Chart reviewed. Patient was admitted to r/o ACS, troponins were trended and negative x3 Cardiology consult by Dr. Kaye appreciated. Patient recommended beta blockers, spironolactone, ashley inhibitors for medical optimization ICD and life vest recommended however patient refused despite high risk of . Downgrade from Tele monitoring and possible AM discharge if remains stable. Patient now with no complaints of chest pain. Patient appears with no acute respiratory distress. A&OX3 no JVD, No carotid bruit, CVS regular rate and rhythm with murmur appreciated at mitral area. Lungs CTAB. Abd soft, non distended. Extremities left BKA with prosthesis , RT foot no edema. A/P ACS ruled out Systolic CHF Patient is currently hemodynamically stable and can dc tele. He is aware of high risk of arrhythmia and and willing to discuss having procedure with his in the AM. Advance directives. Full code for now. Documentation prepared by Shirley Rod, acting as medical planner for Renate Meneses M.D. Physical Examination Vital Signs: Vital Signs Temperature 97.4 F L 07/15/16 18:00 Pulse Rate 75 07/15/16 18:00 Respiratory Rate 16 07/15/16 18:00 Blood Pressure 115/58 07/15/16 18:00 O2 Sat by Pulse Oximetry (%) 96 07/15/16 18:00 Labs: CBC, BMP 07/15/16 05:51 07/15/16 05:51
[2016-07-16] MEDS: BUDESONIDE/FORMETEROL FUMARATE 160/4.5 mcg INHALER IH SCH ×2 (01:51→11:13)
[2016-07-16] MEDS: FUROSEMIDE 40 MG TABLET (FP) PO SCH ×2 (06:21→14:36)
[2016-07-16] MEDS: GABAPENTIN 300 MG CAPSULE (FP) PO SCH ×2 (06:21→14:36)
[2016-07-16] MEDS: hydrALAZINE HCL 50 MG TABLET (FP) PO SCH ×2 (06:21→14:36)
--- NOTE | 2016-07-16 08:34 | PN ---
Physical Exam: SUBJECTIVE: Patient seen and examined OBJECTIVE: Vital Signs Period Temp Pulse Resp BP Sys/Mccabe Pulse Ox Last 24 Hr 97.4 F-98.8 F 73-79 16-20 114-137/58-75 94-99 GENERAL: The patient is awake, alert, and fully oriented, in no acute distress. HEAD: Normal with no signs of trauma. EYES: PERRL, extraocular movements intact, sclera anicteric, conjunctiva clear. No ptosis. ENT: Ears normal, nares patent, oropharynx clear without exudates, moist mucous membranes. NECK: Trachea midline, full range of motion, supple. LUNGS: Breath sounds equal, clear to auscultation bilaterally, no wheezes, no crackles, no accessory muscle use. HEART: Regular rate and rhythm, S1, S2 without murmur, rub or gallop. ABDOMEN: Soft, nontender, nondistended, normoactive bowel sounds, no guarding, no rebound, no hepatosplenomegaly, no masses. EXTREMITIES: 2+ pulses, warm, well-perfused, no edema. NEUROLOGICAL: Cranial nerves II through XII grossly intact. Normal speech, gait not observed. PSYCH: Normal mood, normal affect. SKIN: Warm, dry, normal turgor, no rashes or lesions noted Laboratory Results - last 24 hr 07/15/16 09:53 Troponin I 0.05 Active Medications Generic Name Dose Route Start Last Admin Trade Name Freq PRN Reason Stop Dose Admin Amlodipine Besylate 5 mg 07/15/16 10:00 07/15/16 10:15 Norvasc - PO 5 mg DAILY MAURICIO Administration Ascorbic Acid 500 mg 07/15/16 10:07/15/16 10:15 Vitamin C - PO 500 mg DAILY MAURICIO Administration Aspirin 81 mg 07/15/16 10:00 07/15/16 10:15 Asa - PO 81 mg DAILY MAURICIO Administration Budesonide/Formoterol Fumarate 1 puff 07/15/16 10:07/16/16 01:51 Symbicort 160/4.5mcg - IH Not Given BID MAURICIO Carvedilol 25 mg 07/15/16 10:00 07/15/16 22:10 Coreg - PO 25 mg BID MAURICIO Administration Furosemide 40 mg 07/15/16 06:00 07/16/16 06:21 Lasix - PO 40 mg BIDLASIX MAURICIO Administration Gabapentin 300 mg 07/15/16 06:00 07/16/16 06:21 Neurontin - PO 300 mg TID MAURICIO Administration Hydralazine HCl 50 mg 07/15/16 06:00 07/16/16 06:21 Apresoline - PO 50 mg TID MAURICIO Administration Isosorbide Mononitrate 60 mg 07/15/16 10:00 07/15/16 10:15 Imdur - PO 60 mg DAILY MAURICIO Administration Multivitamins/Minerals/Vitamin C 1 tab 07/15/16 10:00 07/15/16 10:15 Tab-A-Vit - PO 1 tab DAILY MAURICIO Administration Prednisone 10 mg 07/15/16 10:00 07/15/16 10:15 Deltasone - PO 10 mg DAILY [facility] Administration Ranitidine HCl 150 mg 07/15/16 10:00 07/15/16 10:15 Zantac - PO 150 mg DAILY MAURICIO Administration Rosuvastatin Calcium 10 mg 07/15/16 22:00 07/15/16 22:10 Crestor - PO Not Given [facility] Tamsulosin HCl 0.8 mg 07/15/16 08:30 07/15/16 10:15 Flomax - PO 0.8 mg DAILY@0830 MAURICIO Administration CBC, BMP 07/15/16 05:51 CXR: Mild cardiomegaly and bilateral increased interstitial markings again seen without evidence of focal infiltrates ASSESSMENT/PLAN:
[2016-07-16] MEDS: TAMSULOSIN HCL 0.4 MG CAP.ER.24H (FP) PO SCH (09:00)
[2016-07-16 09:19] LABS: CALCIUM 8.5 mg/dL (8.5-10.1); CREATININE 2.6 mg/dL (0.7-1.3)
[2016-07-16] MEDS: ASPIRIN 81 MG CHEWABLE TABLETS PO SCH (11:06)
[2016-07-16] MEDS: CARVEDILOL 25 MG TABLET (FP) PO SCH (11:06)
[2016-07-16] MEDS: predniSONE 10 MG TABLET (UD) PO SCH (11:07)
[2016-07-16] MEDS: ISOSORBIDE MONONITRATE 60 MG TAB.SR.24H (FP) PO SCH (11:07)
[2016-07-16] MEDS: ASCORBIC ACID 500 MG TABLET (FP) PO SCH (11:08)
[2016-07-16] MEDS: MULTIVITAMINS (DAILY MVI) TABLET (FP) PO SCH (11:08)
[2016-07-16] MEDS: RANITIDINE HCL 150 MG TABLET (FP) PO SCH (11:08)
[2016-07-16] MEDS: amLODIPine BESYLATE 5 MG TABLET (FP) PO SCH (11:08)
[2016-07-16 11:48] VITALS: BP 135/73; TEMP 97.4
--- NOTE | 2016-07-16 12:39 | PN ---
[id number] 61yo Male patient presents to ED c/o CP that began at 3pm today with right arm pain and dry mouth. Patient reports he was recently admitted for difficulty breathing but signed himself out 07/03 because he wanted to spend the holidays with family. Patient reports hx: COPD, Asthma, HTN, Open Heart Surgery. He denies n/v/d, fever, back pain, diff breathing, confusion, dizziness, sweating, hematuria, dysuria, or any other complaints at this time. Dr. Kaye- Cardiology - Current Medication List Current Medications: Active Medications Amlodipine Besylate (Norvasc -) 5 mg PO DAILY [facility] Last Admin: 07/16/16 11:08 Dose: 5 mg Ascorbic Acid (Vitamin C -) 500 mg PO DAILY [facility] Last Admin: 07/16/16 11:08 Dose: 500 mg Aspirin (Asa -) 81 mg PO DAILY [facility] Last Admin: 07/16/16 11:06 Dose: 81 mg Budesonide/Formoterol Fumarate (Symbicort 160/4.5mcg -) 1 puff IH BID [facility] Last Admin: 07/16/16 11:13 Dose: 1 puff Carvedilol (Coreg -) 25 mg PO BID [facility] Last Admin: 07/16/16 11:06 Dose: 25 mg Furosemide (Lasix -) 40 mg PO BIDLASIX [facility] Last Admin: 07/16/16 06:21 Dose: 40 mg Gabapentin (Neurontin -) 300 mg PO TID [facility] Last Admin: 07/16/16 06:21 Dose: 300 mg Hydralazine HCl (Apresoline -) 50 mg PO TID [facility] Last Admin: 07/16/16 06:21 Dose: 50 mg Isosorbide Mononitrate (Imdur -) 60 mg PO DAILY [facility] Last Admin: 07/16/16 11:07 Dose: 60 mg Multivitamins/Minerals/Vitamin C (Tab-A-Vit -) 1 tab PO DAILY [facility] Last Admin: 07/16/16 11:08 Dose: 1 tab Prednisone (Deltasone -) 10 mg PO DAILY [facility] Last Admin: 07/16/16 11:07 Dose: 10 mg Ranitidine HCl (Zantac -) 150 mg PO DAILY [facility] Last Admin: 07/16/16 11:08 Dose: 150 mg Rosuvastatin Calcium (Crestor -) 10 mg PO HS [facility] Last Admin: 07/15/16 22:10 Dose: Not Given Tamsulosin HCl (Flomax -) 0.8 mg PO DAILY@0830 [facility] Last Admin: 07/16/16 09:00 Dose: 0.8 mg - Objective Vital Signs: Vital Signs Temperature 97.4 F L 07/16/16 10:00 Pulse Rate 84 07/16/16 10:00 Respiratory Rate 18 07/16/16 10:00 Blood Pressure 135/73 07/16/16 10:00 O2 Sat by Pulse Oximetry (%) 95 07/16/16 03:00 Constitutional: Yes: No Distress Eyes: Yes: WNL HENT: Yes: WNL Neck: Yes: WNL Cardiovascular: Yes: Regular Rate and Rhythm Respiratory: Yes: Regular Gastrointestinal: Yes: Soft ...Rectal Exam: Yes: Deferred Genitourinary: Yes: Anuria Breast(s): Yes: WNL Musculoskeletal: Yes: Muscle Weakness Extremities: Yes: WNL Edema: No Peripheral Pulses WNL: Yes Integumentary: Yes: WNL Neurological: Yes: Oriented, Weakness Psychiatric: Yes: Alert, Oriented Labs: CBC, BMP 07/15/16 05:51 07/16/16 08:15 - ....Imaging Chest X-ray: Image Reviewed (mild IS infiltrates) Problem List - Problems (1) TIA (transient ischemic attack) Code(s): 435.9 - TRANS CEREB ISCHEMIA NOS (2) Acute gastroenteritis Code(s): K52.9 - NONINFECTIVE GASTROENTERITIS AND COLITIS, UNSPECIFIED (3) Acute on chronic systolic and diastolic heart failure, NYHA class 3 Assessment/Plan: Severely reduced LVEF on recent ECHO. Continue carvediolol, hydralazine+Imdur. (Problematic using ACEI, ARB, or spironolactone due to renal dysfunction; f/u BUN/Cr and electrolytes). Code(s): I50.43 - ACUTE ON CHRONIC COMBINED SYSTOLIC AND DIASTOLIC HRT FAIL (4) Hyperlipidemia Assessment/Plan: f/u lipid profile. Code(s): E78.5 - HYPERLIPIDEMIA, UNSPECIFIED (5) Leukopenia Code(s): D72.819 - DECREASED WHITE BLOOD CELL COUNT, UNSPECIFIED (6) Renal dysfunction Code(s): N28.9 - DISORDER OF KIDNEY AND URETER, UNSPECIFIED (7) CAD (coronary artery disease) of bypass graft Code(s): I25.810 - ATHEROSCLEROSIS OF CABG W/O ANGINA PECTORIS (8) COPD (chronic obstructive pulmonary disease) Code(s): J44.9 - CHRONIC OBSTRUCTIVE PULMONARY DISEASE, UNSPECIFIED Qualifiers : COPD type: COPD with acute exacerbation Qualified Code(s): J44.1 - Chronic obstructive pulmonary disease with (acute) exacerbation (9) HTN (hypertension) Code(s): I10 - ESSENTIAL (PRIMARY) HYPERTENSION
[2016-07-16 13:46] VITALS: PULSE 76
--- NOTE | 2016-07-16 14:07 | DS ---
Physical Exam: SUBJECTIVE: Patient seen and examined Pt denies chest pain Pt only had Chest pain yesterday and it lasted 5mn, dull, retrosternal poorly localized radiating to right arm. Pt denies sob but does get dyspnea on exertion denies palpitation no cough, fever, chills no lightheadedness OBJECTIVE: Vital Signs Period Temp Pulse Resp BP Sys/Mccabe Pulse Ox Last 24 Hr 97.4 F-98.8 F 73-84 16-20 115-137/58-75 95-96 PHYSICAL EXAM GENERAL: The patient is awake, alert, and fully oriented, in no acute distress. HEAD: Normal with no signs of trauma. EYES: PERRL, extraocular movements intact, sclera anicteric, conjunctiva clear. No ptosis. ENT: Ears normal, nares patent, oropharynx clear without exudates, moist mucous membranes. NECK: Trachea midline, full range of motion, supple. LUNGS: Diminished, no wheezes, no ronchi, no crackles, no accessory muscle use. HEART: Regular rate and rhythm, S1, S2 without murmur, rub or gallop. ABDOMEN: Soft, nontender, nondistended, normoactive bowel sounds, no guarding, no rebound, no hepatosplenomegaly, no masses. EXTREMITIES: 2+ pulses, warm, well-perfused, no edema. Left AKA with prosthesis NEUROLOGICAL: . Normal speech, gait not observed. PSYCH: Normal mood, normal affect. SKIN: Warm, dry, normal turgor, no rashes or lesions noted LABS Laboratory Results - last 24 hr 07/16/16 08:15 Sodium 143 Potassium 4.0 Chloride 107 Carbon Dioxide 23 Anion Gap 13 BUN 42 H Creatinine 2.6 H Random Glucose 112 H Calcium 8.5 CBC, BMP 07/15/16 05:51 07/16/16 08:15 Laboratory Tests 07/14/16 07/14/16 07/15/16 22:46 23:00 01:36 Potassium 3.3 L Calcium 6.4 L* D Magnesium Total Bilirubin 0.5 D AST 30 ALT 33 Alkaline Phosphatase 53 D Troponin I 0.04 D Albumin 2.1 L D Urine Protein 1+ H Urine Nitrite Negative Ur Leukocyte Esterase Negative Urine WBC 1 07/15/16 07/15/16 07/15/16 05:51 05:51 09:53 Potassium Calcium 8.1 L D Magnesium 2.6 H D Total Bilirubin AST ALT Alkaline Phosphatase Troponin I 0.05 0.05 Albumin Urine Protein Urine Nitrite Ur Leukocyte Esterase Urine WBC 07/16/16 08:15 Potassium Calcium 8.5 Magnesium Total Bilirubin AST ALT Alkaline Phosphatase Troponin I Albumin Urine Protein Urine Nitrite Ur Leukocyte Esterase Urine WBC Echocardiogram: 07/02/16: left ventricle normal size, left ventricle function is severely reduced, severe global hypokenesis . right ventricle normal size, RV function mildly reduced, left atrium moderately enlarged, Moderate mitral regurgitation, mild tricuspid regurgitation, moderate pulmonary regurgitation, RVSP 50-60 HOSPITAL COURSE: Date of Admission:07/15/16 61 year old male, past medical history of COPD, CHF, asthma,, ischemic cardiomyopathy, CAD s/p CABG, CVA, CKD, HTN, who presents with substernal chest pain radiating down his right arm, 8 hours in duration. ER course was notable for:(1) Chest pain (2) Right arm numbness 61 year old male with a PMH of COPD, CHF, asthma, ischemic cardiomyopathy (EF 10 -30% in 2014), CABG (2014), CVA, CKD, HTN presents complaining of chest pain radiating to right arm which resolved by to arrival at the ED. No ekg changes. Troponins negative x3. Pt was seen by mattress specialist Dr Lemon. Pt is to resume all home medication and follow up Dr Lemon as outptient. Echocardiogram done 07/02/16 With severe left ventricular dysfunction and global hypokinesis. Pt will likely need a pacemaker/defibrillator is still have very low ejection fraction, EF was 10-20% in 2014. Hospitalist and mattress specialist discussed the possibilities of getting pacemker/defibrillator. Pt is more open to the pacemaker/defibrillator but wants us to explain everything to his who will make the final decision. Pt understand the risk and consequence of not getting the pacemaker/defibrillator which includes heart attack, arrhytmia, acute CHF excacerbation and . Conversation will be continued as outpatient with Dr Lemon. Continue all home medications. Will need to follow up with Dr Lemon, mattress specialist within one week. Will need to Follow up with Dr Marks within 1 week. Will need to follow up with PCP within 1 week Date of Admission:07/01/16 Minutes to complete discharge: 35 Discharge Summary Reason For Visit: COPD CHEST PAIN Current Active Problems COPD (chronic obstructive pulmonary disease) (Chronic) Condition: Stable - Instructions Diet, Activity, Other Instructions: Discharge home Resume home activity Resume home diet Resume home medication Follow up with Dr Amaro in 1 week Follow up with Dr Lemon within 1 week If you start having symptoms of chest pain, palpitation, shortness of breath, feeling of impending doom, lightheadedness, blurred vision, slurred speech, weakness in arm legs, numbness/tingling please call your Dr., call 911 or come back to the ED. Referrals: Jose Cruz Amaro MD [Primary Care Provider] - John Lemon MD [Staff Physician] - 1 Week Disposition: HOME - Home Medications Comprehensive Discharge Medication List: Ambulatory Orders Ascorbic Acid [Vitamin C] 500 mg PO DAILY 02/20/15 Aspirin [Cipriano Chewable Aspirin] 81 mg PO DAILY 02/20/15 Carvedilol [Coreg] 25 mg PO BID 02/20/15 Famotidine [Pepcid -] 20 mg PO DAILY #7 tablet 02/20/15 Gabapentin 300 mg PO TID 02/20/15 Multivitamin [Poly-Vitamin] 1 each PO DAILY 02/20/15 Rosuvastatin Calcium [Crestor] 20 mg PO BID 02/20/15 Budesonide/Formeterol Fumarate [SYMBICORT 80/4.5mcg -] 1 inh PO BID 07/01/16 Albuterol 0.083% Nebulizer Letty [Ventolin 0.083% Nebulizer Soln -] 1 amp NEB ONCE PRN #0 amp 07/03/16 Amlodipine Besylate [Norvasc -] 5 mg PO DAILY #30 tablet 07/03/16 Budesonide/Formeterol Fumarate [SYMBICORT 160/4.5mcg -] 1 inh PO BID #1 cannister 07/03/16 Furosemide [Lasix -] 40 mg PO BID #60 tablet 07/03/16 Hydralazine HCl [Apresoline -] 50 mg PO TID #90 tablet 07/03/16 Ipratropium/Albuterol Sulfate [Combivent Respimat Inhal [place]] 4 gm IH DAILY #1 aer.w.adap 07/03/16 Isosorbide Mononitrate [Imdur -] 60 mg PO DAILY tab.sr.24h 07/03/16 Prednisone 10 mg PO DAILY #10 tablet 07/03/16 Tamsulosin HCl [Flomax -] 0.8 mg PO DAILY@0830 #30 cap.er.24h 07/03/16 This patient is new to me today: Yes Date on this admission: 07/16/16 Emergency Visit: Yes ED Registration Date: 07/15/16 Care time: The patient presented to the Emergency Department on the above date and was hospitalized for further evaluation of their emergent condition. Critical Care patient: No - Discharge Referral Referred to [facility] Med P.C.: No
--- NOTE | 2016-07-16 19:22 | PN ---
Teaching Attending Note Name of Resident: Fan Moulton ATTENDING PHYSICIAN STATEMENT I saw and evaluated the patient. I reviewed the resident's note and discussed the case with the resident. I agree with the resident's findings and plan as documented. SUBJECTIVE: Patient is comfortable no further chest pain, no shortness of breath, no nausea or vomiting. no headache OBJECTIVE: Vital Signs Temperature 97.4 F L 07/16/16 13:44 Pulse Rate 76 07/16/16 13:44 Respiratory Rate 17 07/16/16 13:44 Blood Pressure 135/73 07/16/16 10:00 O2 Sat by Pulse Oximetry (%) 95 07/16/16 03:00 GENERAL: The patient is awake, alert, and fully oriented, in no acute distress. HEAD: Normal with no signs of trauma. EYES: PERRL, extraocular movements intact, sclera anicteric, conjunctiva clear. No ptosis. ENT: Ears normal, nares patent, oropharynx clear without exudates, moist mucous membranes. NECK: Trachea midline, full range of motion, supple. LUNGS: Diminished, no wheezes, no ronchi, no crackles, no accessory muscle use. HEART: Regular rate and rhythm, S1, S2 without murmur, rub or gallop. ABDOMEN: Soft, nontender, nondistended, normoactive bowel sounds, no guarding, no rebound, no hepatosplenomegaly, no masses. EXTREMITIES: 2+ pulses, warm, well-perfused, no edema. Left AKA with prosthesis NEUROLOGICAL: . Normal speech, gait not observed. PSYCH: Normal mood, normal affect. SKIN: Warm, dry, normal turgor, no rashes or lesions noted CBCD WBC 5.2 K/mm3 (4.0-10.0) 07/15/16 05:51 RBC 4.69 M/mm3 (4.00-5.60) 07/15/16 05:51 Hgb 13.7 GM/dL (11.7-16.9) 07/15/16 05:51 Hct 42.8 % (35.4-49) 07/15/16 05:51 MCV 91.3 fl (80-96) 07/15/16 05:51 MCHC 32.1 g/dl (32.0-35.9) 07/15/16 05:51 RDW 14.6 % (11.9-15.9) 07/15/16 05:51 Plt Count 179 K/MM3 (134-434) 07/15/16 05:51 MPV 9.6 fl (7.5-11.1) 07/15/16 05:51 CMP Sodium 143 mmol/L (136-145) 07/16/16 08:15 Potassium 4.0 mmol/L (3.5-5.1) 07/16/16 08:15 Chloride 107 mmol/L (98-107) 07/16/16 08:15 Carbon Dioxide 23 mmol/L (21-32) 07/16/16 08:15 Anion Gap 13 (8-16) 07/16/16 08:15 BUN 42 mg/dL (7-18) H 07/16/16 08:15 Creatinine 2.6 mg/dL (0.7-1.3) H 07/16/16 08:15 Creat Clearance w eGFR 34.25 (>60) 07/15/16 01:36 Random Glucose 112 mg/dL (74-106) H 07/16/16 08:15 Calcium 8.5 mg/dL (8.5-10.1) 07/16/16 08:15 Total Bilirubin 0.5 mg/dL (0.2-1.0) D 07/15/16 01:36 AST 30 U/L (15-37) 07/15/16 01:36 ALT 33 U/L (12-78) 07/15/16 01:36 Alkaline Phosphatase 53 U/L (45-117) D 07/15/16 01:36 Total Protein 4.8 g/dl (6.4-8.2) L D 07/15/16 01:36 Albumin 2.1 g/dl (3.4-5.0) L D 07/15/16 01:36 CARDIAC ENZYMES Creatine Kinase 85 IU/L (39-308) 07/14/16 22:46 Troponin I 0.05 ng/ml (0.00-0.05) 07/15/16 09:53 Medication Instructions Recorded Ascorbic Acid [Vitamin C] 500 mg PO DAILY 02/20/15 Aspirin [Cipriano Chewable Aspirin] 81 mg PO DAILY 02/20/15 Carvedilol [Coreg] 25 mg PO BID 02/20/15 Famotidine [Pepcid -] 20 mg PO DAILY #7 tablet 02/20/15 Gabapentin 300 mg PO TID 02/20/15 Multivitamin [Poly-Vitamin] 1 each PO DAILY 02/20/15 Rosuvastatin Calcium [Crestor] 20 mg PO BID 02/20/15 Budesonide/Formeterol Fumarate 1 inh PO BID 07/01/16 [SYMBICORT 80/4.5mcg -] Albuterol 0.083% Nebulizer Letty 1 amp NEB ONCE PRN #0 amp 07/03/16 [Ventolin 0.083% Nebulizer Soln -] Amlodipine Besylate [Norvasc -] 5 mg PO DAILY #30 tablet 07/03/16 Budesonide/Formeterol Fumarate 1 inh PO BID #1 cannister 07/03/16 [SYMBICORT 160/4.5mcg -] Furosemide [Lasix -] 40 mg PO BID #60 tablet 07/03/16 Hydralazine HCl [Apresoline -] 50 mg PO TID #90 tablet 07/03/16 Ipratropium/Albuterol Sulfate 4 gm IH DAILY #1 aer.w.adap 07/03/16 [Combivent Respimat Inhal [place]] Isosorbide Mononitrate [Imdur -] 60 mg PO DAILY tab.sr.24h 07/03/16 Prednisone 10 mg PO DAILY #10 tablet 07/03/16 Tamsulosin HCl [Flomax -] 0.8 mg PO DAILY@0830 #30 cap.er.24h 07/03/16 ASSESSMENT AND PLAN: Patient 61 yr old male presenting to the ED with substernal chest pain squeezing and intermittent radiating to right arm. He states that he had dizziness and SOB with chest pain. History significant for COPD, CHF EF less than 30 %, asthma, CAD s/p GABG, CVA, CKD and HTN. #Acute chest pain ACS ruled out , negative x3 ,discussed with dr bowens ; ok to discharge the patient continue beta blockers, Ajith-inhibitors . Patient needs ICD but reconsidering it and will discuss with his . #Hx of Systolic CHF ;He is aware of high risk of arrhythmia and and willing to discuss having procedure with his Full code for now. will follow with as an outpatient.
== END 2016-07-16 14:50 | disposition home or self-care (01) ==
LOC: JER 16:33 → JERBED 07-15 00:53 → J6S 07-16 01:48
PROVIDERS: ADMIT Internal Medicine; ATTEND Internal Medicine
DX: R07.9 Chest pain, unspecified (principal); I25.10 Atherosclerotic heart disease of native coronary artery without angina pectoris; Z95.1 Presence of aortocoronary bypass graft; I12.9 Hypertensive chronic kidney disease with stage 1 through stage 4 chronic kidney disease, or unspecified chronic kidney disease; N18.9 Chronic kidney disease, unspecified; J44.9 Chronic obstructive pulmonary disease, unspecified; I50.20 Unspecified systolic (congestive) heart failure; Z86.73 Personal history of transient ischemic attack (TIA), and cerebral infarction without residual deficits; E78.5 Hyperlipidemia, unspecified; I25.5 Ischemic cardiomyopathy
CPT/HCPCS: 36415; 71010-TC; 80048; 80053; 81003; 81015; 82550; 83735; 84484; 85025; 85027; 93005; 93010; 99283-25; G0378

== ENCOUNTER 2017-09-22 16:51 | Inpatient (IN) | payer OTHER ==
[2017-09-22 17:04] VITALS: BMI 22.5
--- NOTE | 2017-09-22 17:54 | PDOC ---
History of Present Illness - General Chief Complaint: Lightheaded Stated Complaint: EYE INJURY Time Seen by Provider: 09/22/17 17:32 - History of Present Illness Initial Comments: 09/22/17 17:56 62 y.o. male with a PMH of CAD (s/p stent), COPD (not on home O2) presents to our ED c/o 2 day h/o lightheadedness, subjective dyspnea and chills and non- productive cough. Patient denies any chest pain, palpitations, syncope. Patient als c/o L eye hematoma of unknown origin that he noticed this morning. Patient denies any recent known trauma. NKDA Surgical: CABG, LLE BKA Social: denies current nicotine use (last use 10+ years previous), denies alcohol, denies recreational drugs PMD: Dr. Edson Monson Past History - Past Medical History Allergies/Adverse Reactions: Allergies Allergy/AdvReac Type Severity Reaction Status Date / Time shrimp Allergy Vomiting Verified 07/14/16 17:18 Home Medications: Ambulatory Orders Ascorbic Acid [Vitamin C] 500 mg PO DAILY 02/20/15 Aspirin [Cipriano Chewable Aspirin] 81 mg PO DAILY 02/20/15 Carvedilol [Coreg] 25 mg PO BID 02/20/15 Famotidine [Pepcid -] 20 mg PO DAILY #7 tablet 02/20/15 Gabapentin 300 mg PO TID 02/20/15 Multivitamin [Poly-Vitamin] 1 each PO DAILY 02/20/15 Rosuvastatin Calcium [Crestor] 20 mg PO BID 02/20/15 Budesonide/Formeterol Fumarate [SYMBICORT 80/4.5mcg -] 1 inh PO BID 07/01/16 Albuterol 0.083% Nebulizer Letty [Ventolin 0.083% Nebulizer Soln -] 1 amp NEB ONCE PRN #0 amp 07/03/16 Amlodipine Besylate [Norvasc -] 5 mg PO DAILY #30 tablet 07/03/16 Budesonide/Formeterol Fumarate [SYMBICORT 160/4.5mcg -] 1 inh PO BID #1 cannister 07/03/16 Furosemide [Lasix -] 40 mg PO BID #60 tablet 07/03/16 Ipratropium/Albuterol Sulfate [Combivent Respimat Inhal [place]] 4 gm IH DAILY #1 aer.w.adap 07/03/16 Isosorbide Mononitrate [Imdur -] 60 mg PO DAILY tab.sr.24h 07/03/16 Prednisone 10 mg PO DAILY #10 tablet 07/03/16 Tamsulosin HCl [Flomax -] 0.8 mg PO DAILY@0830 #30 cap.er.24h 07/03/16 hydrALAZINE HCL [Apresoline -] 50 mg PO TID #90 tablet 07/03/16 Albuterol Sulfate [Proair Hfa] 8.5 gm IH DAILY 09/22/17 Amlodipine Besylate 5 mg PO DAILY 09/22/17 Amlodipine Besylate [Norvasc -] 5 mg PO DAILY 09/22/17 Aspirin [ASA -] 81 mg PO DAILY 09/22/17 Aspirin [Aspirin EC] 81 mg PO DAILY 09/22/17 Budesonide/Formeterol Fumarate [SYMBICORT 160/4.5mcg -] 1 inh PO BID 09/22/17 Carvedilol 25 mg PO DAILY 09/22/17 Carvedilol [Coreg -] 25 mg PO DAILY 09/22/17 Furosemide [Lasix -] 40 mg PO DAILY 09/22/17 Gabapentin 300 mg PO DAILY 09/22/17 Hydralazine HCl 50 mg PO DAILY 09/22/17 Hydralazine HCl 50 mg PO DAILY 09/22/17 Isosorbide Mononitrate [Imdur -] 60 mg PO DAILY 09/22/17 Rosuvastatin Calcium [Crestor] 20 mg PO DAILY 09/22/17 Rosuvastatin [Crestor -] 20 mg PO DAILY 09/22/17 Tamsulosin HCl 0.4 mg PO DAILY 09/22/17 Albuterol 2.5/Ipratropium 0.5 [Duoneb -] 1 amp NEB Q4H PRN amp 09/23/17 Ciprofloxacin [Cipro -] 500 mg PO Q2D #5 tablet 09/23/17 Oseltamivir Phosphate [Tamiflu -] 30 mg PO Q2D #5 capsule 09/23/17 Cardiac Disorders: Yes ([facility]) COPD: Yes HTN: Yes - Surgical History Cardiac Surgery: Yes ([facility]) - Suicide/Smoking/Psychosocial Hx Smoking History: Former smoker Have you smoked in the past 12 months: No If you are a former smoker, when did you quit?: 7YRS Information on smoking cessation initiated: No Hx Alcohol Use: No Drug/Substance Use Hx: No Review of Systems - Review of Systems Constitutional: Yes: Chills. No: Fever HEENTM: No: Recent change in vision Respiratory: Yes: Cough ((non-productive)), Shortness of Breath ABD/GI: No: Constipated, Diarrhea, Nausea, Vomiting : No: Burning, Dysuria Integumentary: Yes: Bruising *Physical Exam - Vital Signs Last Vital Signs Temp Pulse Resp BP Pulse Ox 98.0 F 91 H 18 125/68 97 09/22/17 16:57 09/22/17 16:57 09/22/17 16:57 09/22/17 16:57 09/22/17 16:57 - Physical Exam General Appearance: Yes: Nourished, Obese HEENT: positive: EOMI, ADDIE Neck: positive: Trachea midline, Supple Respiratory/Chest: positive: Lungs Clear. negative: Labored Respiration, Decreased Breath Sounds, Crackles, Rales, Rhonchi, Stridor, Wheezing Cardiovascular: positive: S1, S2. negative: Edema, JVD, Murmur Vascular Pulses: Dorsalis-Pedis (R): 2+, Doralis-Pedis (L): 2+ Gastrointestinal/Abdominal: positive: Normal Bowel Sounds, Soft Musculoskeletal: negative: CVA Tenderness (R), CVA Tenderness (L) Extremity: positive: Normal Capillary Refill, Normal Inspection Integumentary: positive: Normal Color, Dry, Warm Neurologic: positive: Fully Oriented, Alert ED Treatment Course - LABORATORY CBC & Chemistry Diagram: 09/23/17 07:09 09/23/17 07:09 Medical Decision Making - Medical Decision Making 09/24/17 14:41 62 y.o. male who presents w/chills, cough, dyspnea + L sided infraorbital hematoma. Initial DDx includes viral illness including Influenza, pneumonia, COPD exacerbation. Will obtain Facial Bone CT + basic labs, Influenza swab. As patient has h/o CABG, will obtain EKG, Troponin. Patient currently breathing comfortably on RA. CT facial bone negative. Influenza B+, Troponin 0.06 (likely demand ischemia), EKG non-ischemic, notable for LAD. Patient admitted inpatient medicine service for further evaluation. *DC/Admit/Observation/Transfer Diagnosis at time of Disposition: AMA - Signed out against medical advice - Discharge Dispostion Disposition: AGAINST MEDICAL ADVICE Condition at time of disposition: Critical - Prescriptions - Referrals - Patient Instructions - Post Discharge Activity
[2017-09-22 19:08] LABS: HEMATOCRIT 42.7 % (35.4-49); HEMOGLOBIN 14.3 GM/dL (11.7-16.9); MCH 29.7 pg (25.7-33.7); MCHC 33.4 g/dl (32.0-35.9); MEAN CELL VOLUME 88.9 fl (80-96); MEAN PLT VOLUME 8.8 fl (7.5-11.1); RDW 13.7 % (11.9-15.9)
[2017-09-22] MEDS ORDERED: ACETAMINOPHEN 500 MG TABLET (FP) PO ONE (19:37)
[2017-09-22] MEDS ORDERED: ACETAMINOPHEN 325 MG TABLET (FP) ONE (19:39)
[2017-09-22] MEDS ORDERED: ACETAMINOPHEN 325 MG TABLET (FP) PO ONE (19:39)
[2017-09-22 19:41] LABS: ANION GAP 11 (8-16); BILIRUBIN,TOTAL 0.4 mg/dL (0.2-1.0); BLOOD UREA NITROGEN 42 mg/dL (7-18); CALCIUM 7.4 mg/dL (8.5-10.1); CHLORIDE 109 mmol/L (98-107); CO2 23 mmol/L (21-32); CREATININE 3.4 mg/dL (0.7-1.3); GLUCOSE,RANDOM 102 mg/dL (74-106); POTASSIUM 3.8 mmol/L (3.5-5.1); SGOT/AST 25 U/L (15-37); SGPT/ALT 23 U/L (12-78); SODIUM 143 mmol/L (136-145); TOT PROT 6.4 g/dl (6.4-8.2)
[2017-09-22 19:42] LABS: ALK PHOS 83 U/L (45-117)
--- NOTE | 2017-09-22 19:50 | PDOC ---
Attending Attestation - Resident Resident Name: Irasema Maloney - ED Attending Attestation I have performed the following: I have examined & evaluated the patient, The case was reviewed & discussed with the resident, I agree w/resident's findings & plan, Exceptions are as noted - HPI HPI: 09/22/17 19:44 "The patient is a 62 year old male, with a significant past medical history of COPD, CAD s/p stent, HTN and cardiac bypass surgery, who presents to the emergency department with lightheadedness, SOB, cough and chills for the past 2 days. He also reports a hematoma on his left eye which he noticed this morning and notes does not know its origin. He denies any kind of syncope or recent trauma. Pt does endorse coughing a lot over the past few days. Denies CP/SOB. Denies abdominal pain. The patient denies headache, fever, nausea, vomit, diarrhea and constipation. Denies dysuria, frequency, urgency and hematuria. Allergies: Shrimp Past surgical history: Cardiac bypass surgery Social history: No alcohol, tobacco or drug use reported - Physicial Exam PE: 09/22/17 19:47 "GENERAL: Awake, alert, and fully oriented, in no acute distress HEAD: No signs of trauma EYES: + L periorbital ecchymosis, PERRLA, EOMI, sclera anicteric, conjunctiva clear ENT: Auricles normal inspection, hearing grossly normal, nares patent, oropharynx clear without exudates. Moist mucosa NECK: Nontender, no stepoffs, Normal ROM, supple, no lymphadenopathy, JVD, or masses LUNGS: Breath sounds equal, clear to auscultation bilaterally. No wheezes, and no crackles HEART: Regular rate and rhythm, normal S1 and S2, no murmurs, rubs or gallops ABDOMEN: Soft, nontender, normoactive bowel sounds. No guarding, no rebound. No masses EXTREMITIES: Normal range of motion, no edema. No clubbing or cyanosis. No cords, erythema, or tenderness NEUROLOGICAL: Cranial nerves II through XII intact. 5/5 strength and sensation in all extremities, Normal speech, normal gait, normal cerebellar function SKIN: Warm, Dry, normal turgor, no rashes or lesions noted. - Medical Decision Making 09/22/17 19:47 62 M with chills, lightheadedness, SOB, and cough x 2 days. Likely influenza vs other viral URI. Will send screening trop given h/o CAD, though EKG is unremarkable. Also consider CHF exacerbation given dyspnea. Pt also with L periorbital ecchymosis of unclear etiology. Adamantly denies trauma. - Labs, trop, BNP - CXR, UA - CT head/facial bones - IVF, tylenol - Reassess 09/22/17 21:56 CT negative Labs notable for trop 0.06, elevated BNP Pt with + flu swab Heart Score/ECG Review - ECG Impressions Comment:: 09/22/17 19:52 NSR, no JULIOCESAR/STDs, TWI in I and aVL, L axis deviation, rate 82
[2017-09-22 20:02] LABS: N-TERMINAL BNP 6843.6 pg/ml (5-125)
[2017-09-22] MEDS ORDERED: ASPIRIN 325 MG TABLET PO ONE (20:10)
[2017-09-22 20:38] LABS: PLATELET COUNT 93 K/MM3 (134-434); PLATELET ESTIMATE DECREASED
[2017-09-22] MEDS ORDERED: ASPIRIN 325 MG TABLET ONE (22:14)
[2017-09-22] MEDS ORDERED: SODIUM CHLORIDE 1,000 ML IV SCH (23:00)
[2017-09-22] MEDS ORDERED: HEPARIN NA (PORCINE) 5,000 UNITS/ML 1ML VIAL SQ SCH (23:00)
--- NOTE | 2017-09-22 23:04 | HP ---
CHIEF COMPLAINT: flu like sx past 2 days PCP: HISTORY OF PRESENT ILLNESS: 62 y/o M with PMH COPD (not on baseline oxygen), CAD s/p stent, HTN, HLD, s/p cardiac bypass surgery, ?CKD, possible PVD, who presents to the ED c/o lightheadedness and cough over the past two days. As per pt, on Wednesday, he noticed that he began to fell unwell. He developed lightheadedness and productive cough with white mucus, as well as subjective fever, generalized VITAL, and chills similar to rigors. His sx were mildly alleviated by Theraflu. During this time, he also endorsed loose BMs (without blood)- three episodes a day over the past two days, which has since self-resolved. Pt believes his sx started after he took the medication, Famotidine over the weekend. At this time , pt also endorses periorbital hematoma under his L eye, which developed suddenly today, without trauma. Pt denies sick contacts, chest pain or pressure , N/V, or changes in urinary function. 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 Smoking: quit 8 yrs ago. had smoked for 30 yrs 1-2 ppd. Alcohol: stopped drinking recently. drank socially previously Drugs: denies Family History: father - [place], cardiac issues Allergies shrimp Allergy (Verified 09/22/17 17:04) - causes nausea/vomiting. was hospitalized in past for allergic rxn HOME MEDICATIONS: REVIEW OF SYSTEMS CONSTITUTIONAL: +fever, chills Absent: fever, chills, diaphoresis, generalized weakness, malaise, loss of appetite, weight change HEENT: Absent: rhinorrhea, nasal congestion, throat pain, throat swelling, difficulty swallowing, mouth swelling, ear pain, eye pain, visual changes CARDIOVASCULAR: Absent: chest pain, syncope, palpitations, irregular heart rate, lightheadedness , peripheral edema RESPIRATORY: +cough Absent: cough, shortness of breath, dyspnea with exertion, orthopnea, wheezing, stridor, hemoptysis GASTROINTESTINAL: +diarrhea Absent: abdominal pain, abdominal distension, nausea, vomiting, diarrhea, constipation, melena, hematochezia GENITOURINARY: Absent: dysuria, frequency, urgency, hesitancy, hematuria, flank pain, genital pain MUSCULOSKELETAL: Absent: myalgia, arthralgia, joint swelling, back pain, neck pain SKIN: Absent: rash, itching, pallor HEMATOLOGIC/IMMUNOLOGIC: Absent: easy bleeding, easy bruising, lymphadenopathy, frequent infections ENDOCRINE: Absent: unexplained weight gain, unexplained weight loss, heat intolerance, cold intolerance NEUROLOGIC: +headache Absent: headache, focal weakness or paresthesias, dizziness, unsteady gait, seizure, mental status changes, bladder or bowel incontinence PSYCHIATRIC: Absent: anxiety, depression, suicidal or homicidal ideation, hallucinations. PHYSICAL EXAMINATION Vital Signs 09/22/17 16:57 Temperature 98.0 F Pulse Rate 91 H Respiratory 18 Rate Blood Pressure 125/68 O2 Sat by Pulse 97 Oximetry (%) GENERAL: Resting in bed. Awake, alert, and fully oriented, in no acute distress. HEAD: Normal with no signs of trauma. EYES: Pupils equal, round and reactive to light, extraocular movements intact, sclera anicteric, conjunctiva clear. No lid lag. +L periorbital hematoma - approx 1in. EARS, NOSE, THROAT: Ears normal, nares patent, oropharynx clear without exudates. Moist mucous membranes. NECK: Normal range of motion, supple LUNGS: Breath sounds equal, clear to auscultation bilaterally. No wheezes, and no crackles. No accessory muscle use. HEART: tachycardic rate and rhythm, normal S1 and S2 without murmur, rub or gallop. ABDOMEN: Soft, nontender, not distended, normoactive bowel sounds, no guarding, no rebound, no masses. MUSCULOSKELETAL: Normal range of motion at all joints. No bony deformities or tenderness. No CVA tenderness. LOWER EXTREMITIES: 2+ posterior tibial pulse- R, +LLE prosthesis. RLE- no edema noted NEUROLOGICAL: Cranial nerves II-XII intact. Normal speech. Normal gait. . Laboratory Results 09/22/17 09/22/17 09/22/17 19:00 19:00 19:00 WBC 3.0 L RBC 4.80 Hgb 14.3 Hct 42.7 MCV 88.9 MCH 29.7 MCHC 33.4 RDW 13.7 Plt Count 93 L MPV 8.8 Neutrophils % No Result Required. Neutrophils % (Manual) 47.0 Band Neutrophils % 1.0 Lymphocytes % No Result Required. Lymphocytes % (Manual) 25.0 Monocytes % (Manual) 24 H* Eosinophils % (Manual) 3.0 Basophils % (Manual) 0.0 Platelet Estimate Decreased Platelet Comment No clumping noted Sodium 143 Potassium 3.8 Chloride 109 H Carbon Dioxide 23 Anion Gap 11 BUN 42 H Creatinine 3.4 H Creat Clearance w eGFR 18.51 Random Glucose 102 Calcium 7.4 L Total Bilirubin 0.4 AST 25 ALT 23 Alkaline Phosphatase 83 Troponin I 0.06 H B-Natriuretic Peptide 6843.60 H Total Protein 6.4 Albumin 3.0 L EKG: NSR. T wave inversions I, aVL, QRS 96ms, QTc 443ms ASSESSMENT/PLAN: 62 y/o M with PMH COPD (not on baseline oxygen), CAD s/p stent, HTN, HLD, s/p cardiac bypass surgery, who presents to the ED c/o lightheadedness and cough over the past two days. Pt admitted to tele obs for severe sepsis 2/2 influenza , and elevated troponins, r/o ACS. ID #Severe sepsis 2/2 influenza -Tachycardic HR -91, thrombocytopenia 93k, leukopenic 3 -Though pt out of 48 hr window, will tx with tamiflu 30mg qd - renally dosed -IVF - though pt without official CHF dx, on lasix - will gently hydrate for 1L. Reassess -Isolation precautions d/t Flu B+ -Pain control Tylenol 650mg PO q4h PRN CARDIO #Elevated troponins, likely demand ischemia 2/2 sepsis -Likely 2/2 sepsis, demand -Initial trop 0.06, will trend -telemetry monitoring -Cardio consult #CAD s/p stent -Continue aspirin 81mg qd #?CHF -On lasix at home, continue 40mg PO qd -F/u ECHO #HTN-currently controlled -Continue amlodipine 5mg PO qd, carvedilol 25mg PO qd, hydralazine 50mg PO qd, isosorbide dinitrate 60mg PO qd #HLD -Continue crestor 20mg PO qd HEME #Thrombocytopenia 2/2 possible drug rxn, sepsis, or other pathology -Recommend heme-onc consult /further work-up -Possibly d/t Famotidine, d/c use -F/u Hep B,C, HIV testing -F/u Quantiferon -F/u CBC with diff RENAL #?CKD, ?LIZ superimposed on CKD -Pt unaware of baseline Cr -Contact PMD, director community center for further records -For time being, will get u osm, s osm, u lytes, renal sono - calculate FEna #Hypocalcemia -Corrected Ca 8.2 -Will replete with Ca gluconate x 1 -Follow level PULM #COPD -Currently without sx -Duonebs q4h PRN for SOB -2L NC 02 as needed HEENT #L periorbital edema -Currently not c/o pain or discomfort -Head CT/orbit - (-) for fx, hemorrhage -Continue to monitor #F/E/N -IV NS 75 cc/hr gentle fluids for 1L total- reassess for crackles - -Monitor electrolytes, especially Ca -sodium controlled diet #PPX DVT: hep SQ 5000 BID #Dispo Tele obs monitoring Visit type - Emergency Visit Emergency Visit: Yes ED Registration Date: 09/22/17 Care time: The patient presented to the Emergency Department on the above date and was hospitalized for further evaluation of their emergent condition. - New Patient This patient is new to me today: Yes Date on this admission: 09/23/17 - Critical Care Critical Care patient: No Hospitalist Screening - Colonoscopy Questionnaire Colonoscopy Questionnaire: Colonoscopy Questionnaire - Patient: 50 - 75 years old and never had a screening colonoscopy: Unknown History of colon or rectal polyps, or CA: Unknown History of IBD, Crohn's disease or UC: Unknown History of abdominal radiation therapy as a child: Unknown - Relative: 1 with colon or rectal CA, or polyps at age 60 or younger: Unknown Colon or rectal CA diagnosed at age 45 or younger: Unknown Multiple relatives with colon or rectal CA: Unknown - Outcome: Screening Result: Negative Screen
[2017-09-22] MEDS ORDERED: ACETAMINOPHEN 325 MG TABLET (FP) PO PRN (23:14)
[2017-09-22] MEDS ORDERED: CALCIUM GLUCONATE 10% - 1,000 MG/10 ML VIAL IVPB ONE (23:15)
[2017-09-22] MEDS ORDERED: ALBUTEROL SO4 2.5/IPRATROPIUM 0.5 INH SOL 3 ML VIAL.NEB. NEB PRN (23:16)
[2017-09-22] MEDS ORDERED: HEPARIN NA (PORCINE) 5,000 UNITS/ML 1ML VIAL ONE (23:30)
[2017-09-22] MEDS ORDERED: CALCIUM GLUCONATE 10% - 1,000 MG/10 ML VIAL ONE (23:30)
[2017-09-22] MEDS: OSELTAMIVIR PHOSPHATE 30 MG CAPSULE PO SCH (23:51)
--- NOTE | 2017-09-23 02:23 | PN ---
Teaching Attending Note Name of Resident: Rody Middleton ATTENDING PHYSICIAN STATEMENT I saw and evaluated the patient. Chart, data, imaging reviewed. I reviewed the resident's note and discussed the case with the resident. I agree with the resident's findings and plan as documented. SUBJECTIVE: 62 y/o M with PMH COPD (not on baseline oxygen), CAD s/p stent, HTN, HLD, s/p cardiac bypass surgery, CKD, possible PVD c/o cough, subjective fever, and dizziness for 2 days, with some transient loose BMs (now resolved) Patient claims his symptoms started after he started taking famotidine and reports having adverse reactions to this medications in the past. OBJECTIVE: Last Vital Signs Temp Pulse Resp BP Pulse Ox 98.0 F 91 H 18 125/68 97 09/22/17 16:57 09/22/17 16:57 09/22/17 16:57 09/22/17 16:57 09/22/17 16:57 General- nad, aaox3 heent- nc, eccymosis under left eye, moist oral mucosa neck -supple cv- s1+s2+ rrr chest- cta abdomen -obese Ext- prosthetic left lower extremity Abnormal Lab Results 09/22/17 09/22/17 09/22/17 19:00 19:00 19:00 WBC 3.0 L Plt Count 93 L Monocytes % (Manual) 24 H* Chloride 109 H BUN 42 H Creatinine 3.4 H Calcium 7.4 L Troponin I 0.06 H B-Natriuretic Peptide 6843.60 H Albumin 3.0 L Urine Protein 09/23/17 09/23/17 02:00 02:18 WBC Plt Count Monocytes % (Manual) Chloride BUN Creatinine Calcium Troponin I 0.13 H D B-Natriuretic Peptide Albumin Urine Protein 2+ H ASSESSMENT AND PLAN: #Sepsis 2/2 influenza B-borderline tachycardia, leukopenia, and source of infection + -droplet precautions -tamiflu -renally dosed -send UA -urine culture -blood cultures #Thrombocytopenia, leukopenia- may be 2/2 sepsis syndrome vs medication induced - possibly from famotidine. R/o HIV, Hep B,C. R/o primary bone marrow d/o. -Spleen U/S -avoid H2 blockers -F/u Hep B,C, HIV testing -F/u Quantiferon -consider heme/onc evaluation #CKD vs LIZ -obtain history from PMD -urine lytes, cr, UA, osm -renal U/S -serum osm -avoid nephrotoxic meds #Elevated troponins- unlikely ACS, may be from demand ischemia -Initial trop 0.06, will trend -telemetry monitoring #CAD s/p stent -Continue aspirin 81mg qd -statin #CHF -furosemide -F/u ECHO DVT ppx heparin sc
[2017-09-23 03:13] LABS: URINE APPEARANCE CLEAR; URINE BILIRUBIN NEGATIVE (NEGATIVE); URINE BLOOD NEGATIVE (NEGATIVE); URINE COLOR LTYELLOW; URINE GLUCOSE (UA) NEGATIVE (NEGATIVE); URINE KETONE NEGATIVE (NEGATIVE); URINE LEUK ESTERASE NEGATIVE (NEGATIVE); URINE NITRITE NEGATIVE (NEGATIVE); URINE UROBILINOGEN NEGATIVE mg/dL (0.2-1.0)
[2017-09-23 03:16] LABS: URINE PROTEIN 2+ (NEGATIVE)
[2017-09-23 03:32] LABS: URINE MUCUS RARE
[2017-09-23] MEDS ORDERED: ACETAMINOPHEN 325 MG TABLET (FP) ONE (07:06)
[2017-09-23 07:23] LABS: HEMOGLOBIN 13.7 GM/dL (11.7-16.9); MCH 29.5 pg (25.7-33.7); MCHC 33.3 g/dl (32.0-35.9); MEAN CELL VOLUME 88.5 fl (80-96); PLATELET COUNT 85 K/MM3 (134-434); RBC 4.63 M/mm3 (4.00-5.60); RDW 13.3 % (11.9-15.9)
[2017-09-23 07:31] LABS: WHITE BLOOD COUNT 1.9 K/mm3 (4.0-10.0)
[2017-09-23 07:46] LABS: ANION GAP 11 (8-16); BLOOD UREA NITROGEN 39 mg/dL (7-18); CALCIUM 8.1 mg/dL (8.5-10.1); CHLORIDE 107 mmol/L (98-107); CO2 24 mmol/L (21-32); CREATININE 3.2 mg/dL (0.7-1.3); GLUCOSE,RANDOM 108 mg/dL (74-106); MAGNESIUM 2.4 mg/dL (1.8-2.4); PHOSPHOROUS 2.3 mg/dL (2.5-4.9); POTASSIUM 3.8 mmol/L (3.5-5.1); SODIUM 142 mmol/L (136-145)
[2017-09-23] MEDS ORDERED: TAMSULOSIN HCL 0.4 MG CAP.ER.24H (FP) PO SCH (08:30)
[2017-09-23 09:25] LABS: ANISOCYTOSIS 0; MACROCYTOSIS 0; PLATELET ESTIMATE DECREASED
[2017-09-23] MEDS ORDERED: CILOSTAZOL 50 MG TABLET (FP) PO SCH (10:00)
[2017-09-23] MEDS ORDERED: ROSUVASTATIN CA 20 MG TABLET (FP) PO SCH (10:00)
[2017-09-23] MEDS ORDERED: hydrALAZINE HCL 50 MG TABLET (FP) PO SCH ×2 (10:00)
[2017-09-23] MEDS ORDERED: ISOSORBIDE MONONITRATE 60 MG TAB.SR.24H (FP) PO SCH ×2 (10:00)
[2017-09-23] MEDS ORDERED: CARVEDILOL 25 MG TABLET (FP) PO SCH ×2 (10:00)
[2017-09-23] MEDS ORDERED: FUROSEMIDE 40 MG TABLET (FP) PO SCH (10:00)
[2017-09-23] MEDS ORDERED: amLODIPine BESYLATE 5 MG TABLET (FP) PO SCH (10:00)
[2017-09-23] MEDS ORDERED: GABAPENTIN 300 MG CAPSULE (FP) PO SCH (10:00)
[2017-09-23] MEDS ORDERED: ASPIRIN 81 MG CHEWABLE TABLETS PO SCH (10:00)
[2017-09-23] MEDS: OSELTAMIVIR PHOSPHATE 30 MG CAPSULE PO SCH (11:00)
--- NOTE | 2017-09-23 11:31 | CON.CARD ---
Cardiology Consult (text) - Consultation Consultation Note: cc: chills, cough hpi: 62 m hx cad s/p pci, cabg (2016), copd, pvd s/p left le amp, ckd, her with flu. Past few days with chills cough sob. No cp, palps, dizzy, loc, pnd, orthopnea, le edema. Sees dr gonsales for cardio, reports having nl stress test few weeks ago. pmh: per hpi psh: cabg social: ex tob fam: mi father ros: per hpi; no n/v, +diarhea, no mejía, vision changes, gib, hematuria, dysuria, wt loss meds: Home Medications Medication Instructions Recorded Albuterol Sulfate [Proair Hfa] 8.5 gm IH DAILY 09/22/17 Amlodipine Besylate 5 mg PO DAILY 09/22/17 Amlodipine Besylate [Norvasc -] 5 mg PO DAILY 09/22/17 Aspirin [ASA -] 81 mg PO DAILY 09/22/17 Aspirin [Aspirin EC] 81 mg PO DAILY 09/22/17 Budesonide/Formeterol Fumarate 1 inh PO BID 09/22/17 [SYMBICORT 160/4.5mcg -] Carvedilol 25 mg PO DAILY 09/22/17 Carvedilol [Coreg -] 25 mg PO DAILY 09/22/17 Cilostazol 50 mg PO BID 09/22/17 Furosemide [Lasix -] 40 mg PO DAILY 09/22/17 Gabapentin 300 mg PO DAILY 09/22/17 Hydralazine HCl 50 mg PO DAILY 09/22/17 Hydralazine HCl 50 mg PO DAILY 09/22/17 Isosorbide Mononitrate [Imdur -] 60 mg PO DAILY 09/22/17 Rosuvastatin Calcium [Crestor] 20 mg PO DAILY 09/22/17 Rosuvastatin [Crestor -] 20 mg PO DAILY 09/22/17 Tamsulosin HCl 0.4 mg PO DAILY 09/22/17 pe: Vital Signs Period Temp Pulse Resp BP Sys/Mccabe Pulse Ox Last 24 Hr 98.0 F-102.7 F 91-96 18-24 125-154/68-82 93-97 nad no jvd rrr s1s2 no mrg ctab nl eff aaox3 no le e/c/c abd nt nd pos bs nojaundice diaphoresis pos dp pt on right, left le amp Laboratory Last Values WBC 1.9 K/mm3 (4.0-10.0) L* D 09/23/17 07:09 RBC 4.63 M/mm3 (4.00-5.60) 09/23/17 07:09 Hgb 13.7 GM/dL (11.7-16.9) 09/23/17 07:09 Hct 41.0 % (35.4-49) 09/23/17 07:09 MCV 88.5 fl (80-96) 09/23/17 07:09 MCH 29.5 pg (25.7-33.7) 09/23/17 07:09 MCHC 33.3 g/dl (32.0-35.9) 09/23/17 07:09 RDW 13.3 % (11.9-15.9) 09/23/17 07:09 Plt Count 85 K/MM3 (134-434) L 09/23/17 07:09 MPV 9.0 fl (7.5-11.1) 09/23/17 07:09 Neutrophils % No Result Required. 09/23/17 07:09 Neutrophils % (Manual) 34.7 % (42.8-82.8) L D 09/23/17 07:09 Band Neutrophils % 8.4 % 09/23/17 07:09 Lymphocytes % No Result Required. 09/23/17 07:09 Lymphocytes % (Manual) 17.9 % (8-40) D 09/23/17 07:09 Monocytes % (Manual) 26 % (3.8-10.2) H* 09/23/17 07:09 Eosinophils % (Manual) 4.2 % (0-4.5) 09/23/17 07:09 Basophils % (Manual) 0.0 % (0-2.0) 09/23/17 07:09 Myelocytes % (Man) 0 % (0-2) 09/23/17 07:09 Promyelocytes % (Man) 0 % (0-2) 09/23/17 07:09 Blast Cells % (Manual) 0 % (0-0) 09/23/17 07:09 Nucleated RBC % 0 % (0-0) 09/23/17 07:09 Metamyelocytes 1 % (0-2) 09/23/17 07:09 Hypochromia 0 09/23/17 07:09 Platelet Estimate Decreased 09/23/17 07:09 Platelet Comment No clumping noted 09/22/17 19:00 Polychromasia 0 09/23/17 07:09 Poikilocytosis 0 09/23/17 07:09 Anisocytosis 0 09/23/17 07:09 Microcytosis 0 09/23/17 07:09 Macrocytosis 0 09/23/17 07:09 Sodium 142 mmol/L (136-145) 09/23/17 07:09 Potassium 3.8 mmol/L (3.5-5.1) 09/23/17 07:09 Chloride 107 mmol/L (98-107) 09/23/17 07:09 Carbon Dioxide 24 mmol/L (21-32) 09/23/17 07:09 Anion Gap 11 (8-16) 09/23/17 07:09 BUN 39 mg/dL (7-18) H 09/23/17 07:09 Creatinine 3.2 mg/dL (0.7-1.3) H 09/23/17 07:09 Creat Clearance w eGFR 18.51 (>60) 09/22/17 19:00 Random Glucose 108 mg/dL (74-106) H 09/23/17 07:09 Serum Osmolality 302 mosm/kg (278-305) 09/23/17 07:09 Calcium 8.1 mg/dL (8.5-10.1) L 09/23/17 07:09 Phosphorus 2.3 mg/dL (2.5-4.9) L 09/23/17 07:09 Magnesium 2.4 mg/dL (1.8-2.4) 09/23/17 07:09 Total Bilirubin 0.4 mg/dL (0.2-1.0) 09/22/17 19:00 AST 25 U/L (15-37) 09/22/17 19:00 ALT 23 U/L (12-78) 09/22/17 19:00 Alkaline Phosphatase 83 U/L (45-117) 09/22/17 19:00 Troponin I 0.12 ng/ml (0.00-0.05) H 09/23/17 07:09 B-Natriuretic Peptide 6843.60 pg/ml (5-125) H 09/22/17 19:00 Total Protein 6.4 g/dl (6.4-8.2) 09/22/17 19:00 Albumin 3.0 g/dl (3.4-5.0) L 09/22/17 19:00 Urine Color Ltyellow 09/23/17 02:00 Urine Appearance Clear 09/23/17 02:00 Urine pH 5.0 (5.0-8.0) 09/23/17 02:00 Ur Specific [place] 1.013 (1.001-1.035) 09/23/17 02:00 Urine Protein 2+ (NEGATIVE) H 09/23/17 02:00 Urine Glucose (UA) Negative (NEGATIVE) 09/23/17 02:00 Urine Ketones Negative (NEGATIVE) 09/23/17 02:00 Urine Blood Negative (NEGATIVE) 09/23/17 02:00 Urine Nitrite Negative (NEGATIVE) 09/23/17 02:00 Urine Bilirubin Negative (NEGATIVE) 09/23/17 02:00 Urine Urobilinogen Negative mg/dL (0.2-1.0) 09/23/17 02:00 Ur Leukocyte Esterase Negative (NEGATIVE) 09/23/17 02:00 Urine WBC (Auto) 1 /hpf (3-5) 09/23/17 02:00 Urine RBC (Auto) None /hpf (0-3) 09/23/17 02:00 Urine Mucus Rare 09/23/17 02:00 Urine Osmolality 446 mosm/kg (300-900) 09/23/17 02:00 HIV 1&2 Antibody Screen Negative 09/23/17 02:18 HIV P24 Antigen Negative 09/23/17 02:18 ecg: sr, nl intervals, no ischemic changes cxr: clear lungs a/p: 62 m hx cad s/p pci, cabg (2016), copd, pvd s/p left le amp, ckd, her with flu. 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
--- NOTE | 2017-09-23 12:01 | PN ---
Progress Note, Physician Chief Complaint: ID Admitted for Influenza B Says he is leaving ! - Current Medication List Current Medications: Active Medications Acetaminophen (Tylenol -) 650 mg PO Q4H PRN PRN Reason: PAIN LEVEL 4 - 6 Last Admin: 09/23/17 07:10 Dose: 650 mg Albuterol/Ipratropium (Duoneb -) 1 amp NEB Q4H PRN PRN Reason: SHORTNESS OF BREATH Amlodipine Besylate (Norvasc -) 5 mg PO DAILY [facility] Aspirin (Asa -) 81 mg PO DAILY [facility] Carvedilol (Coreg -) 25 mg PO DAILY [facility] Cilostazol (Pletal -) 50 mg PO BID [facility] Furosemide (Lasix -) 40 mg PO DAILY [facility] Gabapentin (Neurontin -) 300 mg PO DAILY [facility] Hydralazine HCl (Apresoline -) 50 mg PO DAILY [facility] Isosorbide Mononitrate (Imdur -) 60 mg PO DAILY [facility] Oseltamivir Phosphate (Tamiflu -) 30 mg PO DAILY [facility] Stop: 09/27/17 22:59 Last Admin: 09/22/17 23:51 Dose: 30 mg Rosuvastatin Calcium (Crestor -) 20 mg PO DAILY [facility] Tamsulosin HCl (Flomax -) 0.4 mg PO DAILY@0830 [facility] - Objective Vital Signs: Vital Signs Temperature 102.7 F H 09/23/17 07:06 Pulse Rate 96 H 09/23/17 07:06 Respiratory Rate 24 09/23/17 07:06 Blood Pressure 154/82 09/23/17 07:06 O2 Sat by Pulse Oximetry (%) 93 L 09/23/17 07:06 Constitutional: Yes: No Distress HENT: Yes: Other (Echymosis left infraorbial area) Neck: Yes: WNL, Supple Cardiovascular: Yes: Regular Rate and Rhythm, S1, S2 Respiratory: Yes: WNL, Regular, CTA Bilaterally Gastrointestinal: Yes: WNL, Normal Bowel Sounds, Soft Edema: No Labs: CBC, BMP 09/23/17 07:09 09/23/17 07:09 Problem List - Problems (1) Influenza B Code(s): J10.1 - FLU DUE TO OTH IDENT INFLUENZA VIRUS W OTH RESP MANIFEST (2) Pancytopenia Code(s): D61.818 - OTHER PANCYTOPENIA (3) Demand ischemia Code(s): I24.8 - OTHER FORMS OF ACUTE ISCHEMIC HEART DISEASE (4) Acute renal failure Code(s): N17.9 - ACUTE KIDNEY FAILURE, UNSPECIFIED Assessment/Plan Microbiology 09/22/17 19:45 Nasopharyngeal Swab Influenza Types A,B Antigen (JACI) - Final 09/22/17 19:45 Nasopharyngeal Swab - Final Laboratory Tests 09/22/17 09/22/17 09/23/17 19:00 19:00 02:00 WBC Hgb Plt Count Neutrophils % (Manual) Band Neutrophils % Lymphocytes % (Manual) Monocytes % (Manual) BUN Creatinine Creat Clearance w eGFR 18.51 Total Bilirubin 0.4 AST 25 Troponin I 0.06 H Ur Leukocyte Esterase Negative Urine WBC (Auto) 1 HIV 1&2 Antibody Screen HIV P24 Antigen 09/23/17 09/23/17 09/23/17 02:18 02:18 07:09 WBC 1.9 L* D Hgb 13.7 Plt Count 85 L Neutrophils % (Manual) 34.7 L D Band Neutrophils % 8.4 Lymphocytes % (Manual) 17.9 D Monocytes % (Manual) 26 H* BUN Creatinine Creat Clearance w eGFR Total Bilirubin AST Troponin I 0.13 H D Ur Leukocyte Esterase Urine WBC (Auto) HIV 1&2 Antibody Screen Negative HIV P24 Antigen Negative 09/23/17 07:09 WBC Hgb Plt Count Neutrophils % (Manual) Band Neutrophils % Lymphocytes % (Manual) Monocytes % (Manual) BUN 39 H Creatinine 3.2 H Creat Clearance w eGFR Total Bilirubin AST Troponin I 0.12 H Ur Leukocyte Esterase Urine WBC (Auto) HIV 1&2 Antibody Screen HIV P24 Antigen Assesment Influenza B Demand ischemia Acute renal failure Pancytopenia secondary to Influenza Neutropenia Plan Cultures Discharge AMA with Tamiflu and Ciprofloxacin adjusted for Cr Cl If he stays Tamiflu and Cefepime Yunier NELSON
[2017-09-23 12:05] VITALS: TEMP 99.8
--- NOTE | 2017-09-23 12:13 | PN ---
Physical Exam: SUBJECTIVE: Patient seen and examined OBJECTIVE: Vital Signs Period Temp Pulse Resp BP Sys/Mccabe Pulse Ox Last 24 Hr 98.0 F-102.7 F 90-96 18-24 125-154/68-82 93-97 GENERAL: The patient is awake, alert, and fully oriented, in no acute distress. HEAD: Normal with no signs of trauma. EYES: PERRL, extraocular movements intact, sclera anicteric, conjunctiva clear. No ptosis. ENT: Ears normal, nares patent, oropharynx clear without exudates, moist mucous membranes. NECK: Trachea midline, full range of motion, supple. LUNGS: Breath sounds equal, clear to auscultation bilaterally, no wheezes, no crackles, no accessory muscle use. HEART: Regular rate and rhythm, S1, S2 without murmur, rub or gallop. ABDOMEN: Soft, nontender, nondistended, normoactive bowel sounds, no guarding, no rebound, no hepatosplenomegaly, no masses. EXTREMITIES: 2+ pulses, warm, well-perfused, no edema. NEUROLOGICAL: Cranial nerves II through XII grossly intact. Normal speech, gait not observed. PSYCH: Normal mood, normal affect. SKIN: Warm, dry, normal turgor, no rashes or lesions noted Laboratory Results - last 24 hr 09/22/17 09/22/17 09/22/17 19:00 19:00 19:00 WBC 3.0 L RBC 4.80 Hgb 14.3 Hct 42.7 MCV 88.9 MCH 29.7 MCHC 33.4 RDW 13.7 Plt Count 93 L MPV 8.8 Neutrophils % No Result Required. Neutrophils % (Manual) 47.0 Band Neutrophils % 1.0 Lymphocytes % No Result Required. Lymphocytes % (Manual) 25.0 Monocytes % (Manual) 24 H* Eosinophils % (Manual) 3.0 Basophils % (Manual) 0.0 Myelocytes % (Man) Promyelocytes % (Man) Blast Cells % (Manual) Nucleated RBC % Metamyelocytes Hypochromia Platelet Estimate Decreased Platelet Comment No clumping noted Polychromasia Poikilocytosis Anisocytosis Microcytosis Macrocytosis Sodium 143 Potassium 3.8 Chloride 109 H Carbon Dioxide 23 Anion Gap 11 BUN 42 H Creatinine 3.4 H Creat Clearance w eGFR 18.51 Random Glucose 102 Serum Osmolality Calcium 7.4 L Phosphorus Magnesium Total Bilirubin 0.4 AST 25 ALT 23 Alkaline Phosphatase 83 Troponin I 0.06 H B-Natriuretic Peptide 6843.60 H Total Protein 6.4 Albumin 3.0 L Urine Color Urine Appearance Urine pH Ur Specific Manley Urine Protein Urine Glucose (UA) Urine Ketones Urine Blood Urine Nitrite Urine Bilirubin Urine Urobilinogen Ur Leukocyte Esterase Urine WBC (Auto) Urine RBC (Auto) Urine Mucus Urine Osmolality HIV 1&2 Antibody Screen HIV P24 Antigen 09/23/17 09/23/17 09/23/17 02:00 02:00 02:18 WBC RBC Hgb Hct MCV MCH MCHC RDW Plt Count MPV Neutrophils % Neutrophils % (Manual) Band Neutrophils % Lymphocytes % Lymphocytes % (Manual) Monocytes % (Manual) Eosinophils % (Manual) Basophils % (Manual) Myelocytes % (Man) Promyelocytes % (Man) Blast Cells % (Manual) Nucleated RBC % Metamyelocytes Hypochromia Platelet Estimate Platelet Comment Polychromasia Poikilocytosis Anisocytosis Microcytosis Macrocytosis Sodium Potassium Chloride Carbon Dioxide Anion Gap BUN Creatinine Creat Clearance w eGFR Random Glucose Serum Osmolality Calcium Phosphorus Magnesium Total Bilirubin AST ALT Alkaline Phosphatase Troponin I 0.13 H D B-Natriuretic Peptide Total Protein Albumin Urine Color Ltyellow Urine Appearance Clear Urine pH 5.0 Ur Specific Manley 1.013 Urine Protein 2+ H Urine Glucose (UA) Negative Urine Ketones Negative Urine Blood Negative Urine Nitrite Negative Urine Bilirubin Negative Urine Urobilinogen Negative Ur Leukocyte Esterase Negative Urine WBC (Auto) 1 Urine RBC (Auto) None Urine Mucus Rare Urine Osmolality 446 HIV 1&2 Antibody Screen HIV P24 Antigen 09/23/17 09/23/17 09/23/17 02:18 07:09 07:09 WBC 1.9 L* D RBC 4.63 Hgb 13.7 Hct 41.0 MCV 88.5 MCH 29.5 MCHC 33.3 RDW 13.3 Plt Count 85 L MPV 9.0 Neutrophils % No Result Required. Neutrophils % (Manual) 34.7 L D Band Neutrophils % 8.4 Lymphocytes % No Result Required. Lymphocytes % (Manual) 17.9 D Monocytes % (Manual) 26 H* Eosinophils % (Manual) 4.2 Basophils % (Manual) 0.0 Myelocytes % (Man) 0 Promyelocytes % (Man) 0 Blast Cells % (Manual) 0 Nucleated RBC % 0 Metamyelocytes 1 Hypochromia 0 Platelet Estimate Decreased Platelet Comment Polychromasia 0 Poikilocytosis 0 Anisocytosis 0 Microcytosis 0 Macrocytosis 0 Sodium 142 Potassium 3.8 Chloride 107 Carbon Dioxide 24 Anion Gap 11 BUN 39 H Creatinine 3.2 H Creat Clearance w eGFR Random Glucose 108 H Serum Osmolality Calcium 8.1 L Phosphorus 2.3 L Magnesium 2.4 Total Bilirubin AST ALT Alkaline Phosphatase Troponin I 0.12 H B-Natriuretic Peptide Total Protein Albumin Urine Color Urine Appearance Urine pH Ur Specific Manley Urine Protein Urine Glucose (UA) Urine Ketones Urine Blood Urine Nitrite Urine Bilirubin Urine Urobilinogen Ur Leukocyte Esterase Urine WBC (Auto) Urine RBC (Auto) Urine Mucus Urine Osmolality HIV 1&2 Antibody Screen Negative HIV P24 Antigen Negative 09/23/17 07:09 WBC RBC Hgb Hct MCV MCH MCHC RDW Plt Count MPV Neutrophils % Neutrophils % (Manual) Band Neutrophils % Lymphocytes % Lymphocytes % (Manual) Monocytes % (Manual) Eosinophils % (Manual) Basophils % (Manual) Myelocytes % (Man) Promyelocytes % (Man) Blast Cells % (Manual) Nucleated RBC % Metamyelocytes Hypochromia Platelet Estimate Platelet Comment Polychromasia Poikilocytosis Anisocytosis Microcytosis Macrocytosis Sodium Potassium Chloride Carbon Dioxide Anion Gap BUN Creatinine Creat Clearance w eGFR Random Glucose Serum Osmolality 302 Calcium Phosphorus Magnesium Total Bilirubin AST ALT Alkaline Phosphatase Troponin I B-Natriuretic Peptide Total Protein Albumin Urine Color Urine Appearance Urine pH Ur Specific Manley Urine Protein Urine Glucose (UA) Urine Ketones Urine Blood Urine Nitrite Urine Bilirubin Urine Urobilinogen Ur Leukocyte Esterase Urine WBC (Auto) Urine RBC (Auto) Urine Mucus Urine Osmolality Cancelled HIV 1&2 Antibody Screen HIV P24 Antigen Active Medications Generic Name Dose Route Start Last Admin Trade Name Freq PRN Reason Stop Dose Admin Acetaminophen 650 mg 09/22/17 23:14 09/23/17 07:10 Tylenol - PO 650 mg Q4H PRN Administration PAIN LEVEL 4 - 6 Albuterol/Ipratropium 1 amp 09/22/17 23:16 Duoneb - NEB Q4H PRN SHORTNESS OF BREATH Amlodipine Besylate 5 mg 09/23/17 10:00 09/23/17 11:00 Norvasc - PO 5 mg DAILY [facility] Administration Aspirin 81 mg 09/23/17 10:00 09/23/17 11:00 Asa - PO 81 mg DAILY [facility] Administration Carvedilol 25 mg 09/23/17 10:00 09/23/17 11:00 Coreg - PO 25 mg DAILY [facility] Administration Cilostazol 50 mg 09/23/17 10:00 09/23/17 11:00 Pletal - PO 50 mg BID [facility] Administration Furosemide 40 mg 09/23/17 10:00 09/23/17 11:00 Lasix - PO 40 mg DAILY [facility] Administration Gabapentin 300 mg 09/23/17 10:00 09/23/17 11:00 Neurontin - PO 300 mg DAILY [facility] Administration Hydralazine HCl 50 mg 09/23/17 10:00 09/23/17 11:00 Apresoline - PO 50 mg DAILY [facility] Administration Isosorbide Mononitrate 60 mg 09/23/17 10:00 09/23/17 11:00 Imdur - PO 60 mg DAILY [facility] Administration Oseltamivir Phosphate 30 mg 09/25/17 10:00 Tamiflu - PO 09/30/17 09:59 Q2D [facility] Rosuvastatin Calcium 20 mg 09/23/17 10:00 09/23/17 11:00 Crestor - PO 20 mg DAILY [facility] Administration Tamsulosin HCl 0.4 mg 09/23/17 08:30 09/23/17 11:00 Flomax - PO 0.4 mg DAILY@0830 [facility] Administration ASSESSMENT/PLAN:
--- NOTE | 2017-09-23 12:29 | CONS ---
DATE OF CONSULTATION: HISTORY: This is a 62-year-old [place] man admitted with chief complaint of fever, cough, chills, and shortness of breath for approximately 2 days. He has a significant past medical history with known coronary artery disease and coronary artery bypass graft surgery years ago. He also has COPD with a former history of heavy smoking. He has been ill over the last few days with fever and chills, and when he came to the emergency room he was diagnosed with influenza B. He was also noted to be pancytopenic in acute renal failure with elevated TNIs, and at the time I saw him, he was already committed to leaving, if necessary, against medical advice. PAST MEDICAL HISTORY: Includes COPD, coronary artery disease, hypertension, bypass surgery, former smoking. MEDICATIONS: Flomax, Neurontin, DuoNeb, Coreg, Norvasc, Apresoline, Crestor, Lasix, Imdur, aspirin, Pletal. ALLERGIES: SHRIMP. SOCIAL HISTORY: . [place] immigrant living in the [facility] many years. No recent travel. HIV tested negative today. No alcohol or drug abuse. FAMILY HISTORY: Reviewed and noncontributory. REVIEW OF SYSTEMS: Respiratory: Nonproductive cough with shortness of breath, chest congestion. Cardiac: No chest pain, palpitations, syncope. History of murmur. Gastrointestinal: No abdominal pain, nausea, vomiting, diarrhea. Genitourinary: No dysuria, hematuria, urinary frequency. PHYSICAL EXAMINATION: General: He is an alert male in no acute distress talking on his cellphone noting that he is leaving. Vital Signs: Temperature 102.7, pulse 90, blood pressure 146/70, respirations 18, O2 saturation room air 96%. Neck: Supple with no adenopathy. Lungs: Clear to P and A. Heart: S1, S2. Regular rhythm without murmur. Chest Wall: Sternum symmetrical with a midline sternotomy healed incision. Abdomen: Soft and nontender. Extremities: Without edema. LABORATORY DATA: White count 1.9, hemoglobin 13.7, platelets 85,000 with a differential of 35% polys, 8 bands, 17.9 lymphocytes, and 26 monocytes. Urinalysis with 1 RBC, BUN 39, creatinine 3.2. Troponin 0.01. Liver enzymes within normal limits. Two sets of blood cultures thus far no growth. Chest x-ray was reviewed. Shows no acute infiltrate. ASSESSMENT: 1. Sepsis syndrome secondary to influenza B. 2. Acute renal failure. 3. Coronary artery disease status post bypass graft surgery. 4. Elevated troponin I, probable demand ischemia. 5. Acute renal failure. 6. Neutropenia and pancytopenia most likely secondary to influenza viral illness. PLAN: As he is leaving, would discharge on a combination of Tamiflu and ciprofloxacin adjusted for creatinine clearance. The patient will need to sign out against medical advice and was strongly advised against leaving the hospital particularly given his multiple comorbid baseline health conditions. GINNA CROSS M.D. [id number]
[2017-09-23 12:39] VITALS: BP 147/80; PULSE 88
--- NOTE | 2017-09-23 13:09 | DS ---
Physical Exam: Selected Entries 09/22/17 09/23/17 09/23/17 16:57 07:06 08:00 Temperature 98.0 F 102.7 F H 99.8 F H Pulse Rate 91 H Respiratory Rate Blood Pressure [Left Arm] O2 Sat by Pulse 93 L Oximetry (%) Oxygen Flow 3 Rate 09/23/17 12:30 Temperature Pulse Rate Respiratory 18 Rate Blood Pressure 147/80 [Left Arm] O2 Sat by Pulse 98 Oximetry (%) Oxygen Flow Rate Laboratory Tests 09/22/17 09/22/17 09/22/17 19:00 19:00 19:00 WBC 3.0 L Plt Count 93 L Monocytes % (Manual) 24 H* BUN 42 H Creatinine 3.4 H Troponin I 0.06 H B-Natriuretic Peptide 6843.60 H Urine Protein Urine Osmolality Hepatitis A Ab Total Hep Bs Antigen Hep Bs Antibody Hep B Core Total Ab HIV 1&2 Antibody Screen HIV P24 Antigen 09/23/17 09/23/17 09/23/17 02:00 02:00 02:18 WBC Plt Count Monocytes % (Manual) BUN Creatinine Troponin I 0.13 H D B-Natriuretic Peptide Urine Protein 2+ H Urine Osmolality 446 Hepatitis A Ab Total Hep Bs Antigen Hep Bs Antibody Hep B Core Total Ab HIV 1&2 Antibody Screen HIV P24 Antigen 09/23/17 09/23/17 09/23/17 02:18 02:18 07:09 WBC 1.9 L* D Plt Count 85 L Monocytes % (Manual) 26 H* BUN Creatinine Troponin I B-Natriuretic Peptide Urine Protein Urine Osmolality Hepatitis A Ab Total Pending Hep Bs Antigen Pending Hep Bs Antibody Pending Hep B Core Total Ab Pending HIV 1&2 Antibody Screen Negative HIV P24 Antigen Negative 09/23/17 07:09 WBC Plt Count Monocytes % (Manual) BUN 39 H Creatinine 3.2 H Troponin I 0.12 H B-Natriuretic Peptide Urine Protein Urine Osmolality Hepatitis A Ab Total Hep Bs Antigen Hep Bs Antibody Hep B Core Total Ab HIV 1&2 Antibody Screen HIV P24 Antigen Microbiology 09/22/17 19:45 Nasopharyngeal Swab Influenza Types A,B Antigen (JACI) - Final 09/22/17 19:45 Nasopharyngeal Swab - Final Imaging: CT FACIAL [facility]- NEGATIVE CT HEAD- No CT evidence of acute intracranial pathology. CXR- No evidence of pneumonia, CHF, pleural effusion, or pneumothorax. RENAL U/S- 1. Absent left kidney with morphologically normal right kidney and no evidence of hydronephrosis or acute pathology. SPLEEN U/S- 2. No evidence of splenomegaly. Please see above discussion. HOSPITAL COURSE: Date of Admission:09/23/17 Date of Discharge: 09/23/17 62 year old M with pmh of COPD, CAD, HTN, HLD, CKD, possible PVD with left leg amputated, possible PVD admitted with cough, fever, dizziness x 2 days. Patient found to be septic 2/2 to Influenza B. Patient also found to be thrombocytopenic , leukopenic, and with an elevated troponin. Patient started on tamiflu and was being worked up for his lab abnormalities. However, patient decided to leave against medical advice. Risks were explained and patient understood these risks prior to signing AMA paperwork and leaving. Patient was sent with Tamiflu and Ciprofloxacin. Minutes to complete discharge: 40 <Monico Del Castillo - Last Filed: 09/23/17 16:11> Physical Exam: Patient seen and examined Vital Signs Temperature 99.8 F H 09/23/17 08:00 Pulse Rate 88 09/23/17 12:30 Respiratory Rate 18 09/23/17 12:30 Blood Pressure 147/80 09/23/17 12:30 O2 Sat by Pulse Oximetry (%) 98 09/23/17 12:30 CBCD WBC 1.9 K/mm3 (4.0-10.0) L* D 09/23/17 07:09 RBC 4.63 M/mm3 (4.00-5.60) 09/23/17 07:09 Hgb 13.7 GM/dL (11.7-16.9) 09/23/17 07:09 Hct 41.0 % (35.4-49) 09/23/17 07:09 MCV 88.5 fl (80-96) 09/23/17 07:09 MCHC 33.3 g/dl (32.0-35.9) 09/23/17 07:09 RDW 13.3 % (11.9-15.9) 09/23/17 07:09 Plt Count 85 K/MM3 (134-434) L 09/23/17 07:09 MPV 9.0 fl (7.5-11.1) 09/23/17 07:09 CMP Sodium 142 mmol/L (136-145) 09/23/17 07:09 Potassium 3.8 mmol/L (3.5-5.1) 09/23/17 07:09 Chloride 107 mmol/L (98-107) 09/23/17 07:09 Carbon Dioxide 24 mmol/L (21-32) 09/23/17 07:09 Anion Gap 11 (8-16) 09/23/17 07:09 BUN 39 mg/dL (7-18) H 09/23/17 07:09 Creatinine 3.2 mg/dL (0.7-1.3) H 09/23/17 07:09 Creat Clearance w eGFR 18.51 (>60) 09/22/17 19:00 Random Glucose 108 mg/dL (74-106) H 09/23/17 07:09 Calcium 8.1 mg/dL (8.5-10.1) L 09/23/17 07:09 Total Bilirubin 0.4 mg/dL (0.2-1.0) 09/22/17 19:00 AST 25 U/L (15-37) 09/22/17 19:00 ALT 23 U/L (12-78) 09/22/17 19:00 Alkaline Phosphatase 83 U/L (45-117) 09/22/17 19:00 Total Protein 6.4 g/dl (6.4-8.2) 09/22/17 19:00 Albumin 3.0 g/dl (3.4-5.0) L 09/22/17 19:00 CARDIAC ENZYMES Troponin I 0.12 ng/ml (0.00-0.05) H 09/23/17 07:09 Microbiology 09/22/17 19:45 Nasopharyngeal Swab Influenza Types A,B Antigen (JACI) - Final 09/22/17 19:45 Nasopharyngeal Swab - Final Troponin, BNP 09/22/17 09/23/17 09/23/17 19:00 02:18 07:09 Troponin I 0.06 H 0.13 H D 0.12 H B-Natriuretic Peptide 6843.60 H Home Medications Medication Instructions Recorded Albuterol Sulfate [Proair Hfa] 8.5 gm IH DAILY 09/22/17 Amlodipine Besylate 5 mg PO DAILY 09/22/17 Amlodipine Besylate [Norvasc -] 5 mg PO DAILY 09/22/17 Aspirin [ASA -] 81 mg PO DAILY 09/22/17 Aspirin [Aspirin EC] 81 mg PO DAILY 09/22/17 Budesonide/Formeterol Fumarate 1 inh PO BID 09/22/17 [SYMBICORT 160/4.5mcg -] Carvedilol 25 mg PO DAILY 09/22/17 Carvedilol [Coreg -] 25 mg PO DAILY 09/22/17 Furosemide [Lasix -] 40 mg PO DAILY 09/22/17 Gabapentin 300 mg PO DAILY 09/22/17 Hydralazine HCl 50 mg PO DAILY 09/22/17 Hydralazine HCl 50 mg PO DAILY 09/22/17 Isosorbide Mononitrate [Imdur -] 60 mg PO DAILY 09/22/17 Rosuvastatin Calcium [Crestor] 20 mg PO DAILY 09/22/17 Rosuvastatin [Crestor -] 20 mg PO DAILY 09/22/17 Tamsulosin HCl 0.4 mg PO DAILY 09/22/17 Albuterol 2.5/Ipratropium 0.5 1 amp NEB Q4H PRN amp 09/23/17 [Duoneb -] Ciprofloxacin [Cipro -] 500 mg PO Q2D #5 tablet 09/23/17 Oseltamivir Phosphate [Tamiflu -] 30 mg PO Q2D #5 capsule 09/23/17 Patient signed against medical advice, refusing to stay , states that he feels better and does not want to stay. POsitive for H. Flu type B, prescribed po Tamiflu, dose is adjusted according to renal dosing , also given Rx for Cipro on a daily basis renally adjusted. <Pollo Mullins - Last Filed: 09/23/17 16:55> Discharge Summary Reason For Visit: ELEVATED TROPONIN LEVEL - Home Medications Comprehensive Discharge Medication List: Ambulatory Orders Albuterol Sulfate [Proair Hfa] 8.5 gm IH DAILY 09/22/17 Amlodipine Besylate 5 mg PO DAILY 09/22/17 Amlodipine Besylate [Norvasc -] 5 mg PO DAILY 09/22/17 Aspirin [ASA -] 81 mg PO DAILY 09/22/17 Aspirin [Aspirin EC] 81 mg PO DAILY 09/22/17 Budesonide/Formeterol Fumarate [SYMBICORT 160/4.5mcg -] 1 inh PO BID 09/22/17 Carvedilol 25 mg PO DAILY 09/22/17 Carvedilol [Coreg -] 25 mg PO DAILY 09/22/17 Furosemide [Lasix -] 40 mg PO DAILY 09/22/17 Gabapentin 300 mg PO DAILY 09/22/17 Hydralazine HCl 50 mg PO DAILY 09/22/17 Hydralazine HCl 50 mg PO DAILY 09/22/17 Isosorbide Mononitrate [Imdur -] 60 mg PO DAILY 09/22/17 Rosuvastatin Calcium [Crestor] 20 mg PO DAILY 09/22/17 Rosuvastatin [Crestor -] 20 mg PO DAILY 09/22/17 Tamsulosin HCl 0.4 mg PO DAILY 09/22/17 Albuterol 2.5/Ipratropium 0.5 [Duoneb -] 1 amp NEB Q4H PRN amp 09/23/17 Ciprofloxacin [Cipro -] 500 mg PO Q2D #5 tablet 09/23/17 Oseltamivir Phosphate [Tamiflu -] 30 mg PO Q2D #5 capsule 09/23/17 <Monico Del Castillo - Last Filed: 09/23/17 16:11> - Home Medications Comprehensive Discharge Medication List: Ambulatory Orders Albuterol Sulfate [Proair Hfa] 8.5 gm IH DAILY 09/22/17 Amlodipine Besylate 5 mg PO DAILY 09/22/17 Amlodipine Besylate [Norvasc -] 5 mg PO DAILY 09/22/17 Aspirin [ASA -] 81 mg PO DAILY 09/22/17 Aspirin [Aspirin EC] 81 mg PO DAILY 09/22/17 Budesonide/Formeterol Fumarate [SYMBICORT 160/4.5mcg -] 1 inh PO BID 09/22/17 Carvedilol 25 mg PO DAILY 09/22/17 Carvedilol [Coreg -] 25 mg PO DAILY 09/22/17 Furosemide [Lasix -] 40 mg PO DAILY 09/22/17 Gabapentin 300 mg PO DAILY 09/22/17 Hydralazine HCl 50 mg PO DAILY 09/22/17 Hydralazine HCl 50 mg PO DAILY 09/22/17 Isosorbide Mononitrate [Imdur -] 60 mg PO DAILY 09/22/17 Rosuvastatin Calcium [Crestor] 20 mg PO DAILY 09/22/17 Rosuvastatin [Crestor -] 20 mg PO DAILY 09/22/17 Tamsulosin HCl 0.4 mg PO DAILY 09/22/17 Albuterol 2.5/Ipratropium 0.5 [Duoneb -] 1 amp NEB Q4H PRN amp 09/23/17 Ciprofloxacin [Cipro -] 500 mg PO Q2D #5 tablet 09/23/17 Oseltamivir Phosphate [Tamiflu -] 30 mg PO Q2D #5 capsule 09/23/17 <Pollo Mullins - Last Filed: 09/23/17 16:55> Condition: Critical - Instructions Diet, Activity, Other Instructions: Mr. Srinivasan, we advised against leaving hospital without medical treatment. The risks for leaving were explained to you with your understanding, by signing the against medical advice paper. You were found to be positive for influenza. You also have multiple lab abnormalities on your blood work. These include low white blood cell count, platelet count. Your kidney function is decreased and your cardiac enzymes are elevated. We you recommend cardiac, kidney, hematology/oncology evaluation. 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 Please see your primary doctor as soon as possible. If you experience any worsening of symptoms including high fever, chest pain, shortness of breath , altered mental status, please return to the emergency room. Referrals: Edson Monson MD [Primary Care Provider] - Efraín Wells MD [Staff Physician] - Disposition: AGAINST MEDICAL ADVICE This patient is new to me today: Yes Date on this admission: 09/23/17 Emergency Visit: Yes ED Registration Date: 09/23/17 Care time: The patient presented to the Emergency Department on the above date and was hospitalized for further evaluation of their emergent condition. Critical Care patient: No - Discharge Referral Referred to [facility] No <Monico Del Castillo - Last Filed: 09/23/17 16:11>
--- NOTE | 2017-09-23 16:40 | EKG ---
Test Reason : Blood Pressure : / mmHG Vent. Rate : 082 BPM Atrial Rate : 082 BPM P-R Int : 170 ms QRS Dur : 096 ms QT Int : 380 ms P-R-T Axes : 089 -81 113 degrees QTc Int : 443 ms NORMAL SINUS RHYTHM LEFT AXIS DEVIATION PULMONARY DISEASE PATTERN INFERIOR INFARCT , AGE UNDETERMINED T WAVE ABNORMALITY, CONSIDER LATERAL ISCHEMIA ABNORMAL ECG NO PREVIOUS ECGS AVAILABLE Confirmed by LEVI NELSON, LUIS ALFREDO ([id number]) on 09/23/2017 4:40:17 PM Referred By: Confirmed By:LUIS ALFREDO SIMS MD
[2017-09-25 00:12] LABS: HBSAG SCREEN Negative (Negative); HEP A AB, IGM Negative (Negative); HEP B CORE AB, TOT Positive (Negative)
[2017-09-25] MEDS ORDERED: OSELTAMIVIR PHOSPHATE 30 MG CAPSULE PO SCH (10:00)
== END 2017-09-23 12:54 | disposition left against medical advice (07) | DRG 872 ==
LOC: JER 16:51 → JERBED 21:52 → OBSVTOIN 09-23 08:54 → MERGE 09-23 08:54
PROVIDERS: ADMIT Internal Medicine; ATTEND Internal Medicine
DX: A41.9 Sepsis, unspecified organism (principal); I24.8 Other forms of acute ischemic heart disease; I13.0 Hypertensive heart and chronic kidney disease with heart failure and stage 1 through stage 4 chronic kidney disease, or unspecified chronic kidney disease; D61.818 Other pancytopenia; N17.9 Acute kidney failure, unspecified; J10.1 Influenza due to other identified influenza virus with other respiratory manifestations; R65.20 Severe sepsis without septic shock; I25.10 Atherosclerotic heart disease of native coronary artery without angina pectoris; J44.9 Chronic obstructive pulmonary disease, unspecified; Z87.891 Personal history of nicotine dependence; E78.5 Hyperlipidemia, unspecified; I73.9 Peripheral vascular disease, unspecified; D69.6 Thrombocytopenia, unspecified; E83.51 Hypocalcemia; I11.0 Hypertensive heart disease with heart failure; I50.9 Heart failure, unspecified; Z95.1 Presence of aortocoronary bypass graft; Z91.013 Allergy to seafood; N18.9 Chronic kidney disease, unspecified; H05.222 Edema of left orbit
CPT/HCPCS: 36415; 70450-TC; 70486-TC; 71046-TC-FY; 76705-TC; 76775-TC; 80048; 80053; 81003; 81015; 83735; 83880; 83930; 83935; 84100; 84484; 85025; 86704; 86706; 86708; 87040; 87340; 87389; 87804; 93005; 93010; 93306-TC; 99285-25; G0378; J1644; J7030

== ENCOUNTER 2018-08-11 10:54 | Emergency (ER) | payer OTHER ==
[2018-08-11 11:25] VITALS: BP 122/61; PULSE 85; TEMP 97.7; BMI 22.1
--- NOTE | 2018-08-11 11:50 | PDOC ---
History of Present Illness - General Chief Complaint: Edema Stated Complaint: SENT BY PCP Time Seen by Provider: 08/11/18 11:24 History Source: Patient Exam Limitations: No Limitations - History of Present Illness Initial Comments: 08/11/18 12:15 63-year-old male with renal failure presents to the ED for evaluation of right lower extremity swelling and calf discomfort for the past 2 weeks. Patient returned from vacation and was on a plane for approximately 4 hours. Patient also pending right lower extremity angiogram with stent placement by Dr. Powell Timing/Duration: other Severity: mild Associated Symptoms: reports: denies symptoms Past History - Travel Traveled outside of the country in the last 30 days: No - Past Medical History Allergies/Adverse Reactions: Allergies Allergy/AdvReac Type Severity Reaction Status Date / Time shrimp Allergy Vomiting Verified 08/11/18 11:17 Home Medications: Ambulatory Orders Aspirin [Cipriano Chewable Aspirin] 81 mg PO DAILY 02/20/15 Carvedilol [Coreg] 25 mg PO BID 02/20/15 Gabapentin 300 mg PO TID 02/20/15 Multivitamin [Poly-Vitamin] 1 each PO DAILY 02/20/15 Ipratropium/Albuterol Sulfate [Combivent Respimat 20-100 Mcg] 4 gm IH DAILY #1 aer.w.adap 07/03/16 hydrALAZINE HCL [Apresoline -] 50 mg PO TID #90 tablet 07/03/16 Albuterol Sulfate [Proair Hfa] 8.5 gm IH DAILY 09/22/17 Amlodipine Besylate [Norvasc -] 5 mg PO DAILY 09/22/17 Budesonide/Formeterol Fumarate [SYMBICORT 160/4.5mcg -] 1 inh PO BID 09/22/17 Isosorbide Mononitrate [Imdur -] 60 mg PO DAILY 09/22/17 Rosuvastatin [Crestor -] 20 mg PO DAILY 09/22/17 Tamsulosin HCl 0.4 mg PO DAILY 09/22/17 Albuterol 2.5/Ipratropium 0.5 [Duoneb -] 1 amp NEB Q4H PRN amp 09/23/17 Asthma: Yes Cardiac Disorders: Yes ([facility]) CVA: Yes (08/2014) COPD: Yes CHF: Yes Diabetes: No HTN: Yes Hypercholesterolemia: No - Surgical History Cardiac Surgery: Yes ([facility]) Orthopedic Surgery: Yes (lt above knee amputation) - Immunization History Immunization Up to Date: No - Suicide/Smoking/Psychosocial Hx Smoking History: Former smoker Have you smoked in the past 12 months: No Number of Cigarettes Smoked Daily: 2 If you are a former smoker, when did you quit?: 7YRS Cigars Per Day: 1 Information on smoking cessation initiated: No 'Breaking Loose' booklet given: 09/08/14 Hx Alcohol Use: No Drug/Substance Use Hx: No Substance Use Type: None Hx Substance Use Treatment: No Patient Lives Alone: No Lives with/in: spouse/SO Review of Systems - Review of Systems Able to Perform ROS?: Yes Constitutional: No: Symptoms Reported HEENTM: No: Symptoms Reported Respiratory: No: Symptoms reported Cardiac (ROS): Yes: Edema ABD/GI: No: Symptoms Reported : No: Symptoms Reported Musculoskeletal: Yes: Muscle Pain Integumentary: No: Symptoms Reported Neurological: No: Symptoms reported Hematologic/Lymphatic: No: Symptoms Reported *Physical Exam - Vital Signs Last Vital Signs Temp Pulse Resp BP Pulse Ox 97.7 F 85 18 122/61 95 08/11/18 11:23 08/11/18 11:23 08/11/18 11:23 08/11/18 11:23 08/11/18 11:23 - Physical Exam General Appearance: Yes: Nourished, Appropriately Dressed. No: Apparent Distress HEENT: positive: EOMI, ADDIE, TMs Normal, Pharynx Normal. negative: Pale Conjunctivae Neck: positive: Supple Respiratory/Chest: positive: Lungs Clear, Normal Breath Sounds. negative: Respiratory Distress, Accessory Muscle Use Cardiovascular: positive: Regular Rhythm, Regular Rate. negative: Murmur Gastrointestinal/Abdominal: positive: Soft. negative: Tenderness Extremity: positive: Normal Capillary Refill, Normal Inspection, Normal Range of Motion, Tender (right calf), Swelling (1+M pitting (equally dana)), Calf Tenderness (- homans). negative: Erythema Integumentary: positive: Normal Color, Cold, Moist Neurologic: positive: Motor Strength 5/5 (ambulatory) Moderate Sedation - Procedure Monitoring Vital Signs: Procedure Monitoring Vital Signs Temperature 97.7 F 08/11/18 11:23 Pulse Rate 85 08/11/18 11:23 Respiratory Rate 18 08/11/18 11:23 Blood Pressure 122/61 08/11/18 11:23 O2 Sat by Pulse Oximetry (%) 95 08/11/18 11:23 Heart Score/ECG Review - ECG Intrepretation Rhythm: Regular Rhythm (rate 84, afib w/pvc) ED Treatment Course - RADIOLOGY Radiology Studies Ordered: Category Date Time Status DUPLEX VASCUL US-1 LEG [US] Stat Ultrasound 08/11/18 11:40 Ordered Medical Decision Making - Medical Decision Making 08/11/18 12:27 Chief complaint: Patient for evaluation of right leg DVT. Patient with recent airplane travel 2 weeks ago now complaining of calf pain and mild dyspnea on exertion 2 weeks ago but asymptomatic presently. Patient pending angioplasty with stent to be performed by Dr. Powell in 2 weeks secondary to arterial occlusion of the right lower extremity. Exam: Negative Homans right calf tenderness extremity cold. Plan: Right lower extremity duplex along with EKG. If negative will discharge patient home to follow up with vascular surgeon 08/11/18 12:49 No Khan cyst identified on duplex no evidence of DVT thrombosis in the right lower extremity. Patient to be discharged home. 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 May take Tylenol for discomfort. If symptoms progressively worsen please return to the nearest ER. - Post Discharge Activity
--- NOTE | 2018-08-11 14:13 | EKG ---
Test Reason : Blood Pressure : / mmHG Vent. Rate : 084 BPM Atrial Rate : 087 BPM P-R Int : 000 ms QRS Dur : 106 ms QT Int : 412 ms P-R-T Axes : 000 -81 135 degrees QTc Int : 486 ms ATRIAL FIBRILLATION WITH PREMATURE VENTRICULAR OR ABERRANTLY CONDUCTED COMPLEXES LEFT AXIS DEVIATION INFERIOR INFARCT (CITED ON OR BEFORE 16-MAY-2014) ANTEROLATERAL INFARCT , AGE UNDETERMINED ABNORMAL ECG WHEN COMPARED WITH ECG OF 15-JUL-2016 06:13, ATRIAL FIBRILLATION HAS REPLACED SINUS RHYTHM LEFT POSTERIOR FASCICULAR BLOCK IS NO LONGER PRESENT ANTERIOR INFARCT IS NOW PRESENT ANTEROLATERAL INFARCT IS NOW PRESENT Confirmed by LUIS ALFREDO SIMS MD ([id number]) on 08/11/2018 2:13:20 PM Referred By: Confirmed By:LUIS ALFREDO SIMS MD
--- NOTE | 2018-08-11 14:50 | PN ---
Progress Note (short form) - Note Progress Note: EKG reviewed, found to have new A-fib. Was not seen on prior EKG's. Pt told ED staff that he had Afib in the past. Discussed case with patients central service technician Dr. Amezcua [phone] (cell) who confirmed that pt does not have Afib and recommended anticoagulation. This was communicated to Mr. Srinivasan who refused to come back to the ER. He was made aware that he is at higher risk of stroke with Afib if he is not anticoagulated. He still refused to come. Rafi Marks DO
== END 2018-08-11 13:22 | disposition home or self-care (01) ==
LOC: JER 10:54
DX: M79.604 Pain in right leg (principal); Z87.891 Personal history of nicotine dependence; I10 Essential (primary) hypertension; J45.909 Unspecified asthma, uncomplicated
CPT/HCPCS: 93005; 93010; 93971-TC; 99282-25

== ENCOUNTER → 2023-02-25 | Emergency (ER) | payer OTHER ==
[~2023-02-25] MED LIST: predniSONE 20 MG TABLET (UD) ONE; predniSONE 20 MG TABLET (UD) PO ONE
[2023-02-25 08:04] VITALS: BP 130/75; PULSE 64; RESP 20; TEMP 97.6; BMI 22.6
== END | disposition home or self-care (01) ==
LOC: JERFT 07:55
DX: R60.0 Localized edema (principal); M25.561 Pain in right knee; M70.41 Prepatellar bursitis, right knee
CPT/HCPCS: 73560-TC-RT-FY; 99283-25

== ENCOUNTER 2024-01-19 08:35 | Emergency (ER) | payer OTHER ==
[2024-01-19 08:41] VITALS: PULSE 74; RESP 20; TEMP 98.2; BMI 24.3
[2024-01-19 10:54] LABS: EOS % 9.5 % (0-4.5); HEMATOCRIT 31.2 % (35.4-49); HEMOGLOBIN 10.5 GM/dL (11.7-16.9); LYMPH % 21.1 % (8-40); MCH 32.1 pg (25.7-33.7); MCHC 33.5 g/dl (32.0-35.9); MEAN CELL VOLUME 95.7 fl (80-96); MEAN PLT VOLUME 8.2 fl (7.5-11.1); MONO % 12.1 % (3.8-10.2); NEUT % 56.3 % (42.8-82.8); PLATELET COUNT 97 10^3/uL (134-434); RBC 3.26 M/mm3 (4.00-5.60); RDW 15.6 % (11.9-15.9); WHITE BLOOD COUNT 3.8 K/mm3 (4.0-10.0)
[2024-01-19 11:04] LABS: INR 2.08 (0.83-1.09)
[2024-01-19 11:07] LABS: ACTIVATED PTT 48.8 SECONDS (25.2-36.5)
[2024-01-19] MEDS ORDERED: AZITHROMYCIN IVPB 500 MG/250 ML BAG IVPB ONE (11:20)
[2024-01-19] MEDS ORDERED: TRANEXAMIC ACID 1000 MG/10 ML VIAL ONE (11:22)
[2024-01-19 11:28] LABS: CHLORIDE 105 mmol/L (98-107); POTASSIUM 4.2 mmol/L (3.5-5.1); SODIUM 141 mmol/L (136-145)
[2024-01-19 11:31] LABS: CALCIUM 8.5 mg/dL (8.5-10.1)
[2024-01-19 11:32] LABS: BLOOD UREA NITROGEN 44.8 mg/dL (7-18); CO2 28 mmol/L (21-32); GLUCOSE,RANDOM 91 mg/dL (74-106)
[2024-01-19 11:35] LABS: SGOT/AST 31 U/L (15-37); SGPT/ALT 40 U/L (13-61)
[2024-01-19 11:36] LABS: TOT PROT 6.4 g/dl (6.4-8.2)
[2024-01-19 11:37] LABS: ALK PHOS 135 U/L (45-117)
[2024-01-19] MEDS: OXYMETAZOLINE 0.05% NASAL SOLUTION 15 ML BOTTLE NS ONE (12:46)
[2024-01-19] MEDS: TRANEXAMIC ACID 1000 MG/10 ML VIAL IVPUSH ONE (12:46)
[2024-01-19 14:37] VITALS: BP 131/78
== END 2024-01-19 14:38 | disposition home or self-care (01) ==
LOC: JER 08:35
PROC: 3E033GC Introduction of Other Therapeutic Substance into Peripheral Vein, Percutaneous Approach (ICD-10-PCS; principal; 2024-01-19)
DX: R04.0 Epistaxis (principal); R10.30 Lower abdominal pain, unspecified
CPT/HCPCS: 36415; 80053; 85025; 85610; 85730; 86850; 86900; 86901; 99284-25